=== PATIENT | male | born 1965 | race Caucasian/White ===

== ENCOUNTER → 2016-10-20 | Outpatient (CLI) | payer OTHER ==
[~2016-10-20] MED LIST: ADVIN25/60 INH; ALBUAER2 INH; AMLO-110 PO; ASPEC81 PO; ASPI81TA28 PO; AZEL30SP NAE; CARV25TA2 PO; CITA20TA4 PO; CLOP1TAB15 PO; CYM/30 PO; FLV1 PO; FRS/40 PO; GABA-112 PO; GLC/500 PO; INSDGI SC; INSDGI SQ; LISI40TA PO; MOME100A INH; MTH25 PO; NVLGI SC; OMEP40CA PO; POTA10CA28 PO; ROSU40TA PO; SPRIN/30 INH; TRAM-10 PO; TRIA37.5 PO; ZOLP5TAB PO
[2016-10-20 09:58] LABS: BASO % 0.9 %; BASO ABS # 0.05 K/uL (0-0.2); COMPLETE YES; EOS % 5.5 %; HEMATOCRIT 42.7 % (42-52); IG% 0.2 %; LYMPH % 23.6 %; LYMPH ABS # 1.32 K/uL (1.2-3.4); MEAN CELL VOLUME 86.1 fL (80-100); MEAN CORPUSCULAR HGB CONC 33.7 g/dl (32-36); MEAN PLATELET VOLUME 11.7 fL (7.4-10.4); MONO % 5.9 %; NEUT % 63.9 %; PLATELET COUNT 129 K/uL (130-400); RED BLOOD COUNT 4.96 M/uL (4.7-6.1)
[2016-10-20 10:27] LABS: ESTIMATED AVERAGE GLUCOSE 214 mg/dl; HA1C FLAG Normal (Normal)
[2016-10-20 10:34] LABS: ALT/SGPT 28 U/L (12-78); AST/SGOT 12 U/L (15-37); BLOOD UREA NITROGEN 9 mg/dl (7-18); BUN/CREATININE RATIO 13.9 (10-20); CALCIUM 8.9 mg/dl (8.5-10.1); CARBON DIOXIDE 29 mmol/L (21-32); CHLORIDE 106 mmol/L (98-107); CHOLESTEROL 123 mg/dl (0-200); CREATININE 0.64 mg/dl (0.60-1.40); GLUCOSE 106 mg/dl (70-99); POTASSIUM 4.1 mmol/L (3.5-5.1); SODIUM 142 mmol/L (136-145)
[2016-10-20 10:45] LABS: ALB/GLOB RATIO 1.3 (0.9-2); ALKALINE PHOSPHATASE 61 U/L (45-117); CHOLESTEROL/HDL RATIO 2.9; HDL CHOLESTEROL 42 mg/dl; LDL CHOLESTEROL CALCULATED 57 mg/dl; THYROID STIMULATING HORMONE 0.564 uIu/ml (0.300-4.500); TRIGLYCERIDES 119 mg/dl (0-150); VERY LOW DENSITY LIPOPROT CALC 24 mg/dl
== END | disposition home or self-care (01) ==
LOC: C.LAB1850 08:58
PROVIDERS: ATTEND Internal Medicine
DX: I42.9 Cardiomyopathy, unspecified (principal); E78.5 Hyperlipidemia, unspecified; E11.8 Type 2 diabetes mellitus with unspecified complications; G47.00 Insomnia, unspecified

== ENCOUNTER → 2017-01-25 | Outpatient (CLI) | payer OTHER ==
[~2017-01-25] MED LIST changes: +CEFU1TAB36 PO; +KETO2SHA TOP; +NOVOLOG INJ; +OXYC-57 PO; +PRLSR20 PO; +VNTHFA/IN INH
[2017-01-25 10:43] LABS: BASO % 0.5 %; BASO ABS # 0.03 K/uL (0-0.2); COMPLETE YES; EOS % 4.1 %; IG% 0.3 %; LYMPH % 23.2 %; LYMPH ABS # 1.37 K/uL (1.2-3.4); MEAN CELL VOLUME 92.3 fL (80-100); MEAN CORPUSCULAR HEMOGLOBIN 30.1 pg (25-34); MEAN CORPUSCULAR HGB CONC 32.6 g/dl (32-36); MEAN PLATELET VOLUME 11.5 fL (7.4-10.4); MONO % 6.8 %; NEUT % 65.1 %; PLATELET COUNT 130 K/uL (130-400); RED BLOOD COUNT 4.55 M/uL (4.7-6.1); WHITE BLOOD COUNT 5.91 K/uL (4.8-10.8)
[2017-01-25 10:55] LABS: ESTIMATED AVERAGE GLUCOSE 197 mg/dl; HA1C FLAG Normal (Normal)
[2017-01-25 11:30] LABS: AST/SGOT 35 U/L (15-37); BLOOD UREA NITROGEN 15 mg/dl (7-18); CALCIUM 8.9 mg/dl (8.5-10.1); CARBON DIOXIDE 30 mmol/L (21-32); CHLORIDE 104 mmol/L (98-107); CREATININE 0.66 mg/dl (0.60-1.40); GLUCOSE 245 mg/dl (70-99); POTASSIUM 4.4 mmol/L (3.5-5.1); SODIUM 139 mmol/L (136-145)
[2017-01-25 11:32] LABS: ALB/GLOB RATIO 1.4 (0.9-2); ALKALINE PHOSPHATASE 65 U/L (45-117); ALT/SGPT 75 U/L (12-78)
== END | disposition home or self-care (01) ==
LOC: C.LAB1850 09:32
PROVIDERS: ATTEND Internal Medicine
DX: E11.319 Type 2 diabetes mellitus with unspecified diabetic retinopathy without macular edema (principal); I42.9 Cardiomyopathy, unspecified; I25.10 Atherosclerotic heart disease of native coronary artery without angina pectoris

== ENCOUNTER → 2017-02-12 | Outpatient (CLI) | payer OTHER ==
--- NOTE | 2017-02-12 08:59 | DIAGNOSTIC IMAGING REPORT ---
FUSION CT SINUSES W/O CLINICAL HISTORY: Chronic sinusitis. Nasal septal deviation. COMPARISON STUDY: No previous studies for comparison. FINDINGS: No orbital lesions are visualized. There is no evidence of hydrocephalus. There is partial opacification left mastoid. There is fluid present within the left middle ear cavity. There is minimal mucosal thickening within the sphenoid. There is mild polypoid mucosal thickening within the maxillary sinuses. There is minor mucosal thickening within the ethmoid sinuses. There is mild mucosal disease in the frontal sinuses. There is a left-sided nasal septal spur. The ostiomeatal units are patent. There is a left-sided Jaciel cell. The frontoethmoidal recesses are patent. There is no erosion of the scutum. IMPRESSION: 1. Pansinus mucosal thickening 2. Mild nasal septal deviation to the left 3. The ostiomeatal units and frontoethmoidal recesses are patent 4. Left-sided mastoiditis. Fluid/soft tissue within the left middle ear cavity. No evidence of scutum erosion. Electronically signed by: Srinath Cedeno M.D. 02/12/2017 8:57 AM Dictated Date/Time: 02/12/2017 8:53 AM
== END | disposition home or self-care (01) ==
LOC: C.CTS 08:31
PROVIDERS: ATTEND Physician Assistant
DX: J32.9 Chronic sinusitis, unspecified (principal); H70.92 Unspecified mastoiditis, left ear

== ENCOUNTER 2017-05-14 20:01 | Inpatient (IN) | payer OTHER ==
[~2017-05-14] VITALS: Ht 180.3 cm; Wt 129.8 kg
[~2017-05-14 20:01] MED LIST changes: -ASPI81TA28 PO; -CYM/30 PO; -FLV1 PO; -INSDGI SQ; -MTH25 PO; -TRAM-10 PO
[2017-05-14] MEDS ORDERED: ONDANSETRON INJ 2 MG/ML 2 ML VIAL IV STA (20:20)
[2017-05-14] MEDS ORDERED: SODIUM CHLORIDE 0.9% 1000ML 500 ML IV STA (20:20)
[2017-05-14] MEDS ORDERED: SODIUM CHLORIDE 0.9% 1000ML 1,000 ML IV STA (20:20)
[2017-05-14] MEDS ORDERED: OPTIRAY 320 IV PRN (20:30)
[2017-05-14 20:57] LABS: BASO % 0.4 %; BASO ABS # 0.03 K/uL (0-0.2); COMPLETE YES; EOS % 5.2 %; HEMATOCRIT 43.4 % (42-52); IG% 0.3 %; LYMPH % 22.4 %; MEAN CORPUSCULAR HEMOGLOBIN 30.9 pg (25-34); MEAN CORPUSCULAR HGB CONC 34.3 g/dl (32-36); MEAN PLATELET VOLUME 10.4 fL (7.4-10.4); NEUT % 64.7 %; PLATELET COUNT 150 K/uL (130-400); RED BLOOD COUNT 4.82 M/uL (4.7-6.1); WHITE BLOOD COUNT 7.13 K/uL (4.8-10.8)
[2017-05-14 21:07] LABS: INR 0.9 (0.9-1.1); PARTIAL THROMBOPLASTIN RATIO 0.9; PROTHROMBIN TIME (PATIENT) 9.7 SECONDS (9.0-12.0)
--- NOTE | 2017-05-14 21:07 | EMERGENCY ROOM VISIT NOTE ---
History Report prepared by Alex: Jovanna Sherwood Under the Supervision of: Dr. Oscar Saeed M.D. First contact with patient: 20:12 Chief Complaint: ABNORMAL LABS Stated Complaint: PANCREATITIS, ABD PAIN, REFERRED History of Present Illness The patient is a 52 year old male who presents to the Emergency Room with complaints of persistent abdominal pain for the past 3 weeks. The patient was at his PCP office today for a diabetes check up. He reported that he had been having epigastric abdominal pain for 3 weeks with nausea. Lab work showed that his lipase was 1290 so he was sent to the ED. He has a history of pancreatitis once before in 2012. No reason was found for his pancreatitis. He states that his current abdominal pain does not feel like his previous pancreatitis. He rates his discomfort as a 5/10 in severity. After eating or drinking, his pain worsens to 8/10. He has tried taking Pepto Bismol to no significant relief. He notes that he has lost 10 lbs in the past month. The pain does go through to his back. He saw a chiropractor today to no significant relief. He denies any vomiting, fever, diarrhea, or lower abdominal pain. He denies any alcohol use. He still has his gallbladder. His sugars have been high for the past 3 weeks. Source of History: patient Onset: 3 weeks Position: abdomen (epigastric) Symptom Intensity: 5/10, 8/10 after eating Quality: other (pain) Timing: other (persistent) Modifying Factors (Worsening): eating Associated Symptoms: + nausea, + back pain, No fevers, No vomiting, No diarrhea Note: Pt reports lower abdominal pain, weight loss. Review of Systems See HPI for pertinent positives & negatives. A total of 10 systems reviewed and were otherwise negative. Past Medical & Surgical Medical Problems: (1) Anxiety disorder (2) Asthma (3) Benign hypertension (4) CAD (coronary artery disease) (5) CHF (congestive heart failure) (6) Closed right ankle fracture (7) COPD (chronic obstructive pulmonary disease) (8) Coronary artery disease (9) Depressive disorder (10) Diabetes (11) Dyslipidemia (12) GERD (gastroesophageal reflux disease) (13) HTN (hypertension) (14) Hyperlipidemia (15) Myocardial infarction (16) Pancreatitis (17) Sleep apnea Surgical Problems: (1) History of arthroscopy of left shoulder (2) History of permanent cardiac pacemaker placement (3) Presence of biventricular automatic implantable cardioverter defibrillator (4) Stented coronary artery Family History Cancer Diabetes mellitus FH: heart disease Hypertension Social History Smoking Status: Current Every Day Smoker Marital Status: Occupation Status: disabled Current/Historical Medications Scheduled Amlodipine (Norvasc), 5 MG PO DAILY Aspirin (Aspirin Ec), 81 MG PO DAILY Azelastine Hcl-Fluticasone Pro (Dymista), 1 SPRY CASSI BID Carvedilol (Coreg), 50 MG PO BID Citalopram Hydrobromide (Citalopram Hydrobromide), 20 MG PO DAILY Clopidogrel (Plavix), 75 MG PO DAILY Fluticasone Prop/Salmeterol (Advair Diskus 250/50 60 Dose), 1 PUFF INH BID Furosemide (Lasix), 40 MG PO DAILY Gabapentin (Neurontin), 200 MG PO TID Insulin Aspart (Novolog), 0 SC AC Insulin Glargine (Lantus), 100 UNITS SQ QAM Insulin Glargine (Lantus), 65 UNITS SQ QPM Lisinopril (Zestril), 40 MG PO DAILY Metformin Hcl (Glucophage), 1,000 MG PO HS Omeprazole (Prilosec), 40 MG PO DAILY Potassium Chloride (Micro-K Ext Rel), 20 MEQ PO DAILY Rosuvastatin Calcium (Crestor), 40 MG PO DAILY Triamterene/Hctz (Dyazide 37.5MG/25MG), 1 CAP PO Q2D Scheduled PRN Albuterol (Ventolin Hfa), 1-2 PUFFS INH Q4H PRN for SOB/Wheezing Mometasone Furoate-Formoterol (Dulera 100/5 Mcg), 2 PUFFS INH BID PRN for SOB/ Wheezing Tiotropium [place] (Spiriva Handihaler), 1 CAP INH DAILY PRN for SOB/Wheezing Zolpidem Tartrate (Ambien), 5-10 MG PO HS PRN for Anxiety/Insomnia Allergies Coded Allergies: Lactose (Verified Allergy, Mild, 06/23/15) Felodipine (Verified Allergy, Unknown, UNKNOWN, 06/23/15) Physical Exam Vital Signs Date Time Temp Pulse Resp B/P (MAP) Pulse Ox O2 Delivery O2 Flow Rate FiO2 05/14/17 20:10 36.7 85 18 132/84 96 Room Air Physical Exam GENERAL: Patient is in no acute distress. HEENT: No acute trauma, normocephalic atraumatic, mucous membranes moist, no nasal congestion, no scleral icterus. NECK: No stridor, no adenopathy, no meningismus, trachea is midline. LUNGS: Clear to auscultation bilaterally, no wheeze, no rhonchi, breath sounds equal. HEART: Without murmurs gallops or rubs, regular rate and rhythm. ABDOMEN: Soft, tender in the epigastrium, bowel sounds positive, no hernias, no peritonitis. EXTREMITIES: No cyanosis or edema, full range of motion of all the joints without pain or difficulty, no signs for acute trauma. NEUROLOGIC: Oriented x 3, no acute motor or sensory deficits, no focal weakness. SKIN: No rash, no jaundice, no diaphoresis. Medical Decision & Procedures ER Provider Diagnostic Interpretation: CT of abdomen/pelvis is pending. Laboratory Results 05/14/17 20:40 Red Blood Count 4.82, Mean Corpuscular Volume 90.0, Mean Corpuscular Hemoglobin 30.9, Mean Corpuscular Hemoglobin Concent 34.3, Mean Platelet Volume 10.4, Neutrophils (%) (Auto) 64.7, Lymphocytes (%) (Auto) 22.4, Monocytes (%) (Auto) 7.0, Eosinophils (%) (Auto) 5.2, Basophils (%) (Auto) 0.4, Neutrophils # (Auto) 4.61, Lymphocytes # (Auto) 1.60, Monocytes # (Auto) 0.50, Eosinophils # (Auto) 0.37, Basophils # (Auto) 0.03 05/14/17 20:40 Test 05/14/17 20:40 White Blood Count 7.13 K/uL (4.8-10.8) Red Blood Count 4.82 M/uL (4.7-6.1) Hemoglobin 14.9 g/dL (14.0-18.0) Hematocrit 43.4 % (42-52) Mean Corpuscular Volume 90.0 fL (80-100) Mean Corpuscular Hemoglobin 30.9 pg (25-34) Mean Corpuscular Hemoglobin Concent 34.3 g/dl (32-36) Platelet Count 150 K/uL (130-400) Mean Platelet Volume 10.4 fL (7.4-10.4) Neutrophils (%) (Auto) 64.7 % Lymphocytes (%) (Auto) 22.4 % Monocytes (%) (Auto) 7.0 % Eosinophils (%) (Auto) 5.2 % Basophils (%) (Auto) 0.4 % Neutrophils # (Auto) 4.61 K/uL (1.4-6.5) Lymphocytes # (Auto) 1.60 K/uL (1.2-3.4) Monocytes # (Auto) 0.50 K/uL (0.11-0.59) Eosinophils # (Auto) 0.37 K/uL (0-0.5) Basophils # (Auto) 0.03 K/uL (0-0.2) RDW Standard Deviation 45.7 fL (36.4-46.3) RDW Coefficient of Variation 13.9 % (11.5-14.5) Immature Granulocyte % (Auto) 0.3 % Immature Granulocyte # (Auto) 0.02 K/uL (0.00-0.02) Prothrombin Time 9.7 SECONDS (9.0-12.0) Prothromb Time International Ratio 0.9 (0.9-1.1) Activated Partial Thromboplast Time 24.6 SECONDS (21.0-31.0) Partial Thromboplastin Ratio 0.9 Anion Gap 8.0 mmol/L (3-11) Est Creatinine Clear Calc Drug Dose 139.2 ml/min Estimated GFR () 115.9 Estimated GFR (Non- 100.0 BUN/Creatinine Ratio 12.3 (10-20) Calcium Level 9.4 mg/dl (8.5-10.1) Total Bilirubin 0.4 mg/dl (0.2-1) Aspartate Amino Transf (AST/SGOT) 10 U/L (15-37) Alanine Aminotransferase (ALT/SGPT) 28 U/L (12-78) Alkaline Phosphatase 63 U/L (45-117) Total Protein 7.4 gm/dl (6.4-8.2) Albumin 4.0 gm/dl (3.4-5.0) Globulin 3.4 gm/dl (2.5-4.0) Albumin/Globulin Ratio 1.2 (0.9-2) Amylase Level 115 U/L (25-115) Lipase 2490 U/L (73-393) Beta-Hydroxybutyric Acid 1.40 mg/dL (0.2-2.81) Laboratory results reviewed by me. Medications Administered Medications (Trade) Dose Ordered Sig/Stephan Route Start Time Stop Time Status Last Admin Dose Admin Sodium Chloride 500 ml @ 999 mls/hr Q31M STAT IV 05/14/17 20:20 05/14/17 20:50 DC 05/14/17 20:42 999 MLS/HR Ondansetron HCl (Zofran Inj) 4 mg NOW STAT IV 05/14/17 20:20 05/14/17 20:22 DC 05/14/17 20:42 4 MG Sodium Chloride 1,000 ml @ 200 mls/hr Q5H STAT IV 05/14/17 20:20 05/15/17 01:19 05/14/17 20:42 200 MLS/HR ECG Indication: abdominal pain Rate (beats per minute): 83 Rhythm: normal sinus Findings: no acute ischemic change, no ectopy, other (old anterior lateral infarct) ED Course 2016: The patient was evaluated in room C11B. A complete history and physical exam was performed. 2020: NSS 1000 ml @ 200 mls/hr IV, Zofran Inj 4 mg IV, NSS 500 ml @ 999 mls/hr IV. 2128: Insulin Human Regular 10 units IV. 2132: I discussed the patient's case with Dr. Gonzales, [facility] [place] hospitalist service. The patient will be evaluated for further management. 2134: Upon reexamination the patient is resting comfortably. I discussed results and treatment plan with the patient. He verbalizes agreement and understanding. The patient will be evaluated for further management. Medical Decision Differential diagnoses considered include pancreatitis, biliary colic, acute cholecystis, dehydration, electrolyte imbalance, anemia, infection. There is no leukocytosis or concerning anemia. No kidney failure. Sugar is elevated at 400. No evidence for hepatitis. Pancreatitis was noted with a lipase of around 2400. EKG shows a sinus rhythm, no acute ischemia. There was no coagulopathy. Abdominal and pelvis CT has been ordered to help evaluate the pancreatitis, this result is pending. The patient presents with 3 weeks of epigastric abdominal pain. He carries a history of pancreatitis. He received IV saline, IV Zofran. He was given IV insulin for the elevated blood sugar. Patient is resting comfortably. He does require admission/observation. I did speak with case management, I spoke to the on-call hospitalist. Consults Time Called: 2129 Consulting Physician: Dr. Gonzales [facility] [place] hospitalist service Returned Call: [phone] Discussed the patient's case. The patient will be evaluated for further management. Impression Primary Impression: Pancreatitis Additional Impression: Hyperglycemia Scribe Attestation The scribe's documentation has been prepared under my direction and personally reviewed by me in its entirety. I confirm that the note above accurately reflects all work, treatment, procedures, and medical decision making performed by me. Departure Information Dispostion Being Evaluated By Hospitalist Referrals ,Rusty Borges M.D. (PCP) Patient Instructions [facility] Problem Qualifiers
[2017-05-14 21:26] LABS: ALB/GLOB RATIO 1.2 (0.9-2); BUN/CREATININE RATIO 12.3 (10-20); CALCIUM 9.4 mg/dl (8.5-10.1); CREATININE 0.84 mg/dl (0.60-1.40); POTASSIUM 4.2 mmol/L (3.5-5.1)
[2017-05-14] MEDS ORDERED: INSDGI SQ ×2 (21:27→21:28)
[2017-05-14] MEDS ORDERED: ASPI81TA28 PO (21:28)
[2017-05-14] MEDS ORDERED: NovoLIN-R INSULIN PER UNIT CHARGE IV STA (21:29)
[2017-05-14 21:39] LABS: BETA-HYDROXYBUTYRATE 1.4 mg/dL (0.2-2.81)
--- NOTE | 2017-05-14 21:48 | EMERGENCY ROOM VISIT NOTE ---
ED Visit Note First contact with patient: 20:12 During the patient's ER stay as he was waiting for his abdominal and pelvis CT scan, he began having some increased abdominal pain. He was ordered for morphine 4 mg IV as needed.
[2017-05-14] MEDS ORDERED: MoRPHine SULFATE 4 MG/ML 1 ML CARP\\VIAL IV PRN (22:00)
[2017-05-14] MEDS ORDERED: ALUMINUM/MAGNESIUM/SIMETH (MAALOX MAX) 30 ML UDC PO PRN (22:30)
[2017-05-14] MEDS ORDERED: MAGNESIUM HYDROXIDE SUSP 30 ML UDC PO PRN (22:30)
[2017-05-14] MEDS ORDERED: ONDANSETRON INJ 2 MG/ML 2 ML VIAL IV PRN (22:30)
[2017-05-14] MEDS ORDERED: ALBUTEROL HFA 8 GM INHALER INH PRN (22:30)
[2017-05-14] MEDS ORDERED: ZOLPIDEM TARTRATE 5 MG TAB PO PRN (22:30)
[2017-05-14] MEDS ORDERED: ACETAMINOPHEN 325 MG TAB PO PRN (22:30)
[2017-05-14] MEDS ORDERED: TIOTROPIUM BROMIDE 5 PUFF/90 MCG INH INH PRN (22:30)
--- NOTE | 2017-05-14 22:41 | History and Physical ---
History & Physical Date & Time of Service: May 14, 2017 at 22:26 Chief Complaint: Pancreatitis, Abd Pain, Referred Primary Care Physician: Rusty Gresham M.D. History of Present Illness Source: patient 52 y/o M Hx DM, HTN, HPL, CAD - multiple MIs, pacer/defib, Pancreatitis x 3. Pt was at his PCPs office for a routine visit. He had complained of epigastric pain for 2-3 weeks and his MD checked a lipase as a result. This returned as abnormally high and he was therefore sent to the ER for admission. He denies any CP, SOB, N/V/D, fevers or dysuria. Past Medical/Surgical History Medical Problems: (1) Anxiety disorder Status: Chronic (2) Asthma Status: Chronic (3) Benign hypertension Status: Chronic (4) CAD (coronary artery disease) Status: Chronic (5) CHF (congestive heart failure) Status: Resolved (6) Closed right ankle fracture Status: Resolved (7) COPD (chronic obstructive pulmonary disease) Status: Chronic (8) Coronary artery disease Status: Chronic (9) Depressive disorder Status: Chronic (10) Diabetes Status: Chronic (11) Dyslipidemia Status: Chronic (12) GERD (gastroesophageal reflux disease) Status: Chronic (13) HTN (hypertension) Status: Chronic (14) Hyperlipidemia Status: Chronic (15) Myocardial infarction Permanent Comment: x 5 Status: Chronic (16) Pancreatitis Status: Resolved (17) Sleep apnea Status: Chronic Surgical Problems: (1) History of arthroscopy of left shoulder Status: Resolved (2) History of permanent cardiac pacemaker placement Status: Resolved (3) Presence of biventricular automatic implantable cardioverter defibrillator Status: Resolved (4) Stented coronary artery Status: Resolved Family History Cancer Diabetes mellitus FH: heart disease Hypertension Social History Smoking Status: Current Every Day Smoker Marital Status: Occupational Status: disabled Immunizations History of Influenza Vaccine: N/A Influenza Vaccine Date: Jul 08, 2012 History of Tetanus Vaccine?: UTD History of Pneumococcal: Yes History of Hepatitis B Vaccine: Unknown Multi-Drug Resistant Organisms History of MDRO: Yes Type of MDRO: MRSA Allergies Coded Allergies: Lactose (Verified Allergy, Mild, 06/23/15) Felodipine (Verified Allergy, Unknown, UNKNOWN, 06/23/15) Home Medications Scheduled Amlodipine (Norvasc), 5 MG PO DAILY Aspirin (Aspirin Ec), 81 MG PO DAILY Carvedilol (Coreg), 50 MG PO BID Citalopram Hydrobromide (Citalopram Hydrobromide), 20 MG PO DAILY Clopidogrel (Plavix), 75 MG PO DAILY Fluticasone Prop/Salmeterol (Advair Diskus 250/50 60 Dose), 1 PUFF INH BID Furosemide (Lasix), 40 MG PO DAILY Gabapentin (Neurontin), 200 MG PO TID Insulin Aspart (Novolog), 0 SC AC Insulin Glargine (Lantus), 100 UNITS SQ QAM Insulin Glargine (Lantus), 65 UNITS SQ QPM Lisinopril (Zestril), 40 MG PO DAILY Metformin Hcl (Glucophage), 1,000 MG PO HS Omeprazole (Prilosec), 40 MG PO DAILY Potassium Chloride (Micro-K Ext Rel), 20 MEQ PO DAILY Rosuvastatin Calcium (Crestor), 40 MG PO DAILY Triamterene/Hctz (Dyazide 37.5MG/25MG), 1 CAP PO Q2D Scheduled PRN Albuterol (Ventolin Hfa), 1-2 PUFFS INH Q4H PRN for SOB/Wheezing Mometasone Furoate-Formoterol (Dulera 100/5 Mcg), 2 PUFFS INH BID PRN for SOB/ Wheezing Tiotropium [place] (Spiriva Handihaler), 1 CAP INH DAILY PRN for SOB/Wheezing Zolpidem Tartrate (Ambien), 5-10 MG PO HS PRN for Anxiety/Insomnia Review of Systems Constitutional: No fever, No chills, No sweats Eyes: No worsening of vision ENT: No hearing loss Respiratory: No cough, No sputum, No wheezing Cardiovascular: No chest pain, No orthopnea, No PND Abdomen: + pain, No nausea, No vomiting, No diarrhea, No constipation Musculoskeletal: No joint pain, No muscle pain Genitourinary - Male: No hematuria, No dysuria, No urinary frequency, No urinary urgency Neurologic: No memory loss, No paralysis, No weakness Psychiatric: No depression symptoms Endocrine: No fatigue Hematologic / Lymphatic: No abnormal bleeding/bruising Integumentary: No rash Allergic / Immunologic: No environmental allergies Physical Exam Vital Signs Date Time Temp Pulse Resp B/P (MAP) Pulse Ox O2 Delivery O2 Flow Rate FiO2 05/14/17 22:03 82 18 136/81 97 Room Air 05/14/17 20:10 36.7 85 18 132/84 96 Room Air General Appearance: WD/WN, no apparent distress Head: normocephalic Eyes: normal inspection, PERRL, EOMI ENT: normal ENT inspection, pharynx normal Neck: supple, + pertinent finding (Exam limited by habitus) Respiratory/Chest: chest non-tender, lungs clear, normal breath sounds, no respiratory distress, no accessory muscle use Cardiovascular: regular rate, rhythm, no edema, no gallop Abdomen/GI: normal bowel sounds, non tender, soft Back: normal inspection Extremities/Musculoskelatal: normal inspection 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, no motor/sensory deficits, alert, normal mood/affect, normal reflexes, oriented x 3 Skin: normal color, warm/dry, no rash Diagnostics Laboratory Results Results Past 24 Hours Test 05/14/17 20:40 Range/Units White Blood Count 7.13 4.8-10.8 K/uL Red Blood Count 4.82 4.7-6.1 M/uL Hemoglobin 14.9 14.0-18.0 g/dL Hematocrit 43.4 42-52 % Mean Corpuscular Volume 90.0 80-100 fL Mean Corpuscular Hemoglobin 30.9 25-34 pg Mean Corpuscular Hemoglobin Concent 34.3 32-36 g/dl Platelet Count 150 130-400 K/uL Mean Platelet Volume 10.4 7.4-10.4 fL Neutrophils (%) (Auto) 64.7 % Lymphocytes (%) (Auto) 22.4 % Monocytes (%) (Auto) 7.0 % Eosinophils (%) (Auto) 5.2 % Basophils (%) (Auto) 0.4 % Neutrophils # (Auto) 4.61 1.4-6.5 K/uL Lymphocytes # (Auto) 1.60 1.2-3.4 K/uL Monocytes # (Auto) 0.50 0.11-0.59 K/uL Eosinophils # (Auto) 0.37 0-0.5 K/uL Basophils # (Auto) 0.03 0-0.2 K/uL RDW Standard Deviation 45.7 36.4-46.3 fL RDW Coefficient of Variation 13.9 11.5-14.5 % Immature Granulocyte % (Auto) 0.3 % Immature Granulocyte # (Auto) 0.02 0.00-0.02 K/uL Prothrombin Time 9.7 9.0-12.0 SECONDS Prothromb Time International Ratio 0.9 0.9-1.1 Activated Partial Thromboplast Time 24.6 21.0-31.0 SECONDS Partial Thromboplastin Ratio 0.9 Sodium Level 135 136-145 mmol/L Potassium Level 4.2 3.5-5.1 mmol/L Chloride Level 101 98-107 mmol/L Carbon Dioxide Level 26 21-32 mmol/L Anion Gap 8.0 3-11 mmol/L Blood Urea Nitrogen 10 7-18 mg/dl Creatinine 0.84 0.60-1.40 mg/dl Est Creatinine Clear Calc Drug Dose 139.2 ml/min Estimated GFR () 115.9 Estimated GFR (Non- 100.0 BUN/Creatinine Ratio 12.3 10-20 Random Glucose 416 70-99 mg/dl Calcium Level 9.4 8.5-10.1 mg/dl Total Bilirubin 0.4 0.2-1 mg/dl Aspartate Amino Transf (AST/SGOT) 10 15-37 U/L Alanine Aminotransferase (ALT/SGPT) 28 12-78 U/L Alkaline Phosphatase 63 45-117 U/L Total Protein 7.4 6.4-8.2 gm/dl Albumin 4.0 3.4-5.0 gm/dl Globulin 3.4 2.5-4.0 gm/dl Albumin/Globulin Ratio 1.2 0.9-2 Triglycerides Level 261 0-150 mg/dl Amylase Level 115 25-115 U/L Lipase 2490 73-393 U/L Beta-Hydroxybutyric Acid 1.40 0.2-2.81 mg/dL EKG NSR - LAFB - ant and lat Q wvs Impression Assessment and Plan 52 y/o M Hx DM, HTN, HPL, CAD - multiple MIs, pacer/defib, Pancreatitis x 3. Pt was at his PCPs office for a routine visit. He had complained of epigastric pain for 2-3 weeks and his MD checked a lipase as a result. This returned as abnormally high and he was therefore sent to the ER for admission. He denies any CP, SOB, N/V/D, fevers or dysuria. 1) Pancreatitis - pt will be kept NPO - IVF, pain control as needed. The pt takes several diuretics. He denies a history of pulmonary edema - there is CHF in the records without echo on record. We will hold his diuretics pending AM evaluation and will need to monitor his volume status. Lasix can be provided PRN. 2) DM - hyperglycemia - will be placed on a SS with prescribed Lantus dose. 3) CAD - no evidence of ACS at present - cont ASA, Plavix, statin, B amilcar - NTG PRN 4) HPL - cont statin 5) HTN - Cont Carvedilol, norvasc - diuretics held 6) Smoker - cessation addressed 7) Morbid obesity - may benefit from nutritional counseling prior to DC. Level of Care Med/Surg Resuscitation Status FULL RESUSCITATION VTE Prophylaxis VTE Risk Assessment Done? Y/N: Yes Risk Level: Moderate Given or contraindicated: Unfractionated heparin SQ
[2017-05-14] MEDS ORDERED: POLYETHYLENE (MIRALAX) 17 GM PACK PO PRN (22:45)
[2017-05-14] MEDS ORDERED: GLUCOSE 10 TABS/TUBE PO PRN (23:00)
[2017-05-14] MEDS ORDERED: GLUCAGON FOR INJ 1 MG VIAL SQ PRN (23:00)
[2017-05-14] MEDS ORDERED: DEXTROSE 50% 50 ML SYR IV PRN (23:00)
[2017-05-14] MEDS ORDERED: GLUCOSE 40% GEL 15 GM TUBE PO PRN (23:00)
--- NOTE | 2017-05-14 23:04 | DIAGNOSTIC IMAGING REPORT ---
CT ABD/PELVIS IV AND ORAL CONT CLINICAL HISTORY: Abdominal pain. Elevated lipase. Pancreatitis. COMPARISON STUDY: 06/23/2015 TECHNIQUE: Following the IV administration of 119 mL of Optiray-320, CT scan of the abdomen and pelvis was performed from the lung bases to the proximal femurs. Images are reviewed in the axial, sagittal, and coronal planes. IV contrast was administered without complication. A dose lowering technique was utilized adhering to the principles of ALARA. CT DOSE: 1858.95 mGy.cm FINDINGS: Lower chest: There are bibasal atelectatic changes. There is progressive distal esophageal wall thickening. Liver: There is mild hepatic steatosis. No focal masses are visualized. Gallbladder: Unremarkable. Spleen: The spleen is borderline enlarged measuring 12.2 cm. Pancreas: Unremarkable. Adrenal glands: Unremarkable. Kidneys: There is symmetric renal cortical enhancement. The kidneys are normal in size without hydronephrosis. Bowel: There are no transition zones indicate bowel obstruction. The appendix appears normal. There is no acute diverticulitis. Peritoneum: There is no intraperitoneal free air or abdominal ascites. Vasculature: The abdominal aorta is normal in course and caliber. Adenopathy: None. Pelvic viscera: The bladder, and pelvic viscera are unremarkable. Skeletal structures: No destructive osseous lesions are seen. IMPRESSION: 1. No pancreatic abnormalities are identified 2. Mild hepatic steatosis 3. No evidence of bowel obstruction. No evidence of free air 4. Normal appendix. No evidence of acute diverticulitis. Electronically signed by: Srinath Cedeno M.D. 05/14/2017 11:03 PM Dictated Date/Time: 05/14/2017 10:58 PM
[2017-05-14] MEDS: SODIUM CHLORIDE 0.9% 1000ML 1,000 ML IV SCH (23:48)
[2017-05-15] VITALS (7 sets, daily range): BP systolic 78–164; BP diastolic 64–90; PULSE 67–85; TEMP 36.5–36.6; O2SAT 94–96; Ht 180.3 cm; Wt 129.8 kg
[2017-05-15] MEDS ORDERED: INSULIN GLARGINE SQ SCH ×2 (00:30→09:00)
[2017-05-15] MEDS ORDERED: NURSING VERBAL MED ORDER ONE ×3 (01:00→18:15)
[2017-05-15] MEDS: INSULIN ASPART 100 UNITS/ML 3 ML PEN SC SCH ×6 (01:08→21:00)
[2017-05-15 01:38] LABS: URINE APPEARANCE CLEAR (CLEAR); URINE BILIRUBIN NEG (NEG); URINE COLOR YELLOW; URINE EPITHELIAL CELL AUTO 0-5 /lpf (0-5); URINE NITRITE NEG (NEG); URINE SPECIFIC GRAVITY > 1.045 (1.000-1.030); UROBILINOGEN NEG (NEG); ZZUR CULT IF INDIC CLEAN CATCH NO
[2017-05-15 01:47] LABS: MANUAL MICROSCOPIC REQUIRED? NO; REVIEW REQ? NO
[2017-05-15] MEDS: NICOTINE 14 MG/24 HR TDSY TD SCH ×2 (02:10→08:16)
[2017-05-15] MEDS ORDERED: PNEUMOCOCCAL ADMINISTRATION CHARGE ONE (02:30)
[2017-05-15] MEDS ORDERED: PNEUMOCOCCAL POLYSACCHARIDES 25 MCG/0.5 ML VIAL/SYR IM. ONE (02:30)
[2017-05-15] MEDS: HEPARIN SOD 5000 UNIT/0.5 ML CARP SQ SCH ×3 (06:12→21:28)
[2017-05-15] MEDS ORDERED: INSULIN PROTOCOL GOAL RANGE ONE (06:15)
[2017-05-15] MEDS ORDERED: MODERATE STRESS LEVEL ONE (06:15)
[2017-05-15 06:33] LABS: HEMATOCRIT 44.4 % (42-52); MEAN CELL VOLUME 91.4 fL (80-100); MEAN CORPUSCULAR HEMOGLOBIN 29.6 pg (25-34); MEAN CORPUSCULAR HGB CONC 32.4 g/dl (32-36); MEAN PLATELET VOLUME 10.9 fL (7.4-10.4); PLATELET COUNT 151 K/uL (130-400); RED BLOOD COUNT 4.86 M/uL (4.7-6.1)
[2017-05-15 06:53] LABS: ESTIMATED AVERAGE GLUCOSE 203 mg/dl; HA1C FLAG Normal (Normal)
[2017-05-15 07:05] LABS: BUN/CREATININE RATIO 17.1 (10-20); CALCIUM 8.9 mg/dl (8.5-10.1); CREATININE 0.61 mg/dl (0.60-1.40); POTASSIUM 3.9 mmol/L (3.5-5.1)
[2017-05-15 07:08] LABS: ALB/GLOB RATIO 1.2 (0.9-2)
[2017-05-15] MEDS ORDERED: INSULIN IV INFUSION PROTOCOL SCH (07:08)
[2017-05-15] MEDS ORDERED: INSULIN HUMAN REGULAR IV BOLUS 3 UNIT in SYRINGE 0 ML IV SCH (08:00)
[2017-05-15] MEDS: FLUTICASONE/SALMETEROL 250/50 (ADVAIR) 14 PUFF/1 INHALER INH SCH ×2 (08:15→21:21)
[2017-05-15] MEDS: SODIUM CHLORIDE 0.9% 1000ML 1,000 ML IV SCH ×2 (08:15→16:24)
[2017-05-15] MEDS: INSULIN REGULAR 250 UNITS in SODIUM CHLORIDE 0.9% 250ML 250 ML IV SCH ×2 (08:24→16:35)
[2017-05-15] MEDS: CLOPIDOGREL BISULFATE 75 MG TAB PO SCH (08:26)
[2017-05-15] MEDS: GABAPENTIN 100 MG CAP PO SCH ×3 (08:26→21:23)
[2017-05-15] MEDS: AMLODIPINE BESYLATE 5 MG TAB PO SCH (08:26)
[2017-05-15] MEDS: CITALOPRAM 20 MG TAB PO SCH (08:26)
[2017-05-15] MEDS: LISINOPRIL 40 MG TAB PO SCH (08:27)
[2017-05-15] MEDS: PANTOprazole SOD 40 MG TAB PO SCH (08:27)
[2017-05-15] MEDS: ASPIRIN 81 MG ECTAB PO SCH (08:27)
[2017-05-15] MEDS: ROSUVASTATIN CALCIUM 20 MG TAB PO SCH (08:27)
[2017-05-15] MEDS: CARVEDILOL 25 MG TAB PO SCH ×2 (08:28→21:24)
[2017-05-15] MEDS ORDERED: NICOTINE 14 MG/24 HR TDSY TD SCH (09:00)
[2017-05-15] MEDS ORDERED: POTASSIUM CHLORIDE 10 MEQ TABCR PO SCH (09:00)
[2017-05-15] MEDS ORDERED: FUROSEMIDE 40 MG TAB PO SCH (09:00)
--- NOTE | 2017-05-15 12:07 | Medical Student: [facility] ---
Med Student Progress Note Date of Service May 15, 2017. Subjective Pt evaluation today including: conversation w/ patient, physical exam, chart review, lab review, review of studies Voiding: no voiding problems Patient was examined sitting in chair. He reports that he is feeling better and that his pain is decreasing. Rates pain 2/10 at the moment, down from 4/10 this morning and from 9/10 at its worst about 2 weeks ago. The pain is focal in the epigastric region and is exacerbated by deep palpation. He still does not feel ready to eat. He is familiar with pancreatitis as this is his third incidence in the past 6 years. He denies fever, chills, headache, dizziness, cp, sob, vomiting, diarrhea, numbness/tingling, calf pain. No other complaints at this time. Review of Systems Constitutional: No fever, No chills Eyes: No worsening of vision, No diplopia ENT: No sore throat, No trouble swallowing Respiratory: No cough, No shortness of breath Cardiac: No chest pain, No palpitations Abdomen: + pain, + nausea, No vomiting, No diarrhea Musculoskeletal: No muscle pain, No calf pain Male : No dysuria, No incontinence Neurologic: No weakness, No numbness/tingling Skin: No rash, No itch Objective Vital Signs Date Time Temp Pulse Resp B/P (MAP) Pulse Ox O2 Delivery O2 Flow Rate FiO2 05/15/17 08:00 Room Air 05/15/17 07:54 36.5 75 18 132/82 (99) 94 Room Air 05/15/17 01:39 36.5 85 18 164/90 (114) 95 Room Air 05/15/17 01:15 36.5 85 18 164/90 95 Room Air 05/14/17 23:12 74 18 135/86 98 05/14/17 22:03 82 18 136/81 97 Room Air 05/14/17 20:10 36.7 85 18 132/84 96 Room Air Physical Exam General Appearance: no apparent distress, + obese Eyes: bilateral eyes normal inspection, bilateral eyes PERRL, bilateral eyes EOMI ENT: normal ENT inspection, pharynx normal Neck: supple, no adenopathy, no carotid bruits Respiratory/Chest: lungs clear, normal breath sounds, no respiratory distress, no accessory muscle use Cardiovascular: regular rate, rhythm, no gallop, no murmur Abdomen: + abnormal bowel sounds (hypoactive), + tenderness (to palpation of epigastric region), + pertinent finding (negative [place]offman sign, negative [place] sign) Extremities: normal range of motion, non-tender, no calf tenderness Neurologic/Psychiatric: alert, oriented x 3 Skin: + pertinent finding (multiple skin tags bilaterally on back) Laboratory Results Last 24 Hours Test 05/14/17 20:40 05/14/17 23:30 05/15/17 01:00 05/15/17 05:51 White Blood Count 7.13 K/uL Red Blood Count 4.82 M/uL Hemoglobin 14.9 g/dL Hematocrit 43.4 % Mean Corpuscular Volume 90.0 fL Mean Corpuscular Hemoglobin 30.9 pg Mean Corpuscular Hemoglobin Concent 34.3 g/dl Platelet Count 150 K/uL Mean Platelet Volume 10.4 fL Neutrophils (%) (Auto) 64.7 % Lymphocytes (%) (Auto) 22.4 % Monocytes (%) (Auto) 7.0 % Eosinophils (%) (Auto) 5.2 % Basophils (%) (Auto) 0.4 % Neutrophils # (Auto) 4.61 K/uL Lymphocytes # (Auto) 1.60 K/uL Monocytes # (Auto) 0.50 K/uL Eosinophils # (Auto) 0.37 K/uL Basophils # (Auto) 0.03 K/uL RDW Standard Deviation 45.7 fL RDW Coefficient of Variation 13.9 % Immature Granulocyte % (Auto) 0.3 % Immature Granulocyte # (Auto) 0.02 K/uL Prothrombin Time 9.7 SECONDS Prothromb Time International Ratio 0.9 Activated Partial Thromboplast Time 24.6 SECONDS Partial Thromboplastin Ratio 0.9 Sodium Level 135 mmol/L Potassium Level 4.2 mmol/L Chloride Level 101 mmol/L Carbon Dioxide Level 26 mmol/L Anion Gap 8.0 mmol/L Blood Urea Nitrogen 10 mg/dl Creatinine 0.84 mg/dl Est Creatinine Clear Calc Drug Dose 139.2 ml/min Estimated GFR () 115.9 Estimated GFR (Non- 100.0 BUN/Creatinine Ratio 12.3 Random Glucose 416 mg/dl Calcium Level 9.4 mg/dl Total Bilirubin 0.4 mg/dl Aspartate Amino Transf (AST/SGOT) 10 U/L Alanine Aminotransferase (ALT/SGPT) 28 U/L Alkaline Phosphatase 63 U/L Total Protein 7.4 gm/dl Albumin 4.0 gm/dl Globulin 3.4 gm/dl Albumin/Globulin Ratio 1.2 Triglycerides Level 261 mg/dl Amylase Level 115 U/L Lipase 2490 U/L Beta-Hydroxybutyric Acid 1.40 mg/dL Bedside Glucose 357 mg/dl 294 mg/dl Urine Color YELLOW Urine Appearance CLEAR Urine pH 5.0 Urine Specific [place] > 1.045 Urine Protein NEG Urine Glucose (UA) 3+ Urine Ketones NEG Urine Occult Blood TRACE Urine Nitrite NEG Urine Bilirubin NEG Urine Urobilinogen NEG Urine Leukocyte Esterase NEG Urine WBC (Auto) 0 /hpf Urine RBC (Auto) 0-4 /hpf Urine Hyaline Casts (Auto) 0 /lpf Urine Epithelial Cells (Auto) 0-5 /lpf Urine Bacteria (Auto) NEG Test 05/15/17 06:10 05/15/17 07:35 05/15/17 09:22 05/15/17 10:44 White Blood Count 8.30 K/uL Red Blood Count 4.86 M/uL Hemoglobin 14.4 g/dL Hematocrit 44.4 % Mean Corpuscular Volume 91.4 fL Mean Corpuscular Hemoglobin 29.6 pg Mean Corpuscular Hemoglobin Concent 32.4 g/dl RDW Standard Deviation 46.3 fL RDW Coefficient of Variation 14.0 % Platelet Count 151 K/uL Mean Platelet Volume 10.9 fL Sodium Level 139 mmol/L Potassium Level 3.9 mmol/L Chloride Level 104 mmol/L Carbon Dioxide Level 29 mmol/L Anion Gap 6.0 mmol/L Blood Urea Nitrogen 10 mg/dl Creatinine 0.61 mg/dl Est Creatinine Clear Calc Drug Dose 192.3 ml/min Estimated GFR () 132.1 Estimated GFR (Non- 114.0 BUN/Creatinine Ratio 17.1 Random Glucose 263 mg/dl Estimated Average Glucose 203 mg/dl Hemoglobin A1c 8.7 % Calcium Level 8.9 mg/dl Total Bilirubin 0.4 mg/dl Aspartate Amino Transf (AST/SGOT) 7 U/L Alanine Aminotransferase (ALT/SGPT) 27 U/L Alkaline Phosphatase 59 U/L Total Protein 6.9 gm/dl Albumin 3.7 gm/dl Globulin 3.2 gm/dl Albumin/Globulin Ratio 1.2 Lipase 1872 U/L Bedside Glucose 269 mg/dl 238 mg/dl 213 mg/dl Assessment and Plan Assessment and Plan: This is a 52yo male with a history of T2DM uncontrolled on insulin, CAD x5 MIs s /p pacer/defib placement, and multiple episodes of pancreatitis who presented to the ED with epigastric pain and elevated lipase consistent with acute mild pancreatitis. He is hemodynamically stable. He does not drink alcohol, no recent trauma, no narcotic pain medication, no history of biliary tract disease or instrumentation, no history of hypercalcemia, no recent infection, triglycerides modestly elevated at 261. It is possible that his recurrent pancreatitis is secondary to pancreatic burnout from increasing insulin resistance. 1. Pancreatitis -3rd incidence in the past 6 years -lipase 2490 on admission, trending down 1872 on 05/15: will follow his symptoms and PO tolerance rather than lipase moving forward -continue to keep NPO with trial of clear liquids tomorrow AM -IV nss + KCl 20meq @ 175mls/hr -PRN morphine 2mg IV q6h prn pain -nutrition education 2. T2DM, uncontrolled on insulin -Accuchecks q1h until within goal BSG 140-180 x3, then q2h until within goal x3 , then q4h -insulin drip titrated to goal BSG 140-180 -gabapentin 200mg PO TID for neuropathy 3. CAD with hx of 5 MIs, pacer/defib, stent placement -ASA 81mg PO daily -clopidogrel 75mg PO daily -rosuvastatin 40mg PO daily -furosemide 40mg PO daily # HTN -amlodipine 5mg PO daily -carvedilol 50mg PO BID -lisinopril 40mg PO daily # VIVIAN -CPAP QHS # COPD -fluticasone/salmeterol (Advair) # GERD -pantoprazole 40mg PO daily # Depression -citalopram 20mg PO daily # Tobacco use -nicotine patch prn # Diet -NPO, plan for starting clear liquids 8/16 AM as tolerated # DVT prophylaxis -heparin 5000U q8h -patient may ambulate as tolerated # Discharge planning -Location: home -Date: TBD Continued [facility] stay due to: multiple IV medications needed Discharge planning: home Reviewed: Pt Seen/Exam by Me History See my note for details.
--- NOTE | 2017-05-15 14:17 | Progress Note ---
Subjective Date of Service: May 15, 2017. Subjective Pt evaluation today including: conversation w/ patient Pt states he is feeling improved today, but still with diffuse abd pain that is about 2/10 from his initial pain and worse in the epigastric region. Still with nausea but no emesis. States he has had pancreatitis before and this feels the same as those prior episodes. Also still having distention, but improved. Pt denies fever, SOB, chest pain, c/d, LE pain or swelling. Problem List Medical Problems: (1) Hyperglycemia Status: Acute Review of Systems All Other Systems: Reviewed and Negative Objective Vital Signs Date Time Temp Pulse Resp B/P (MAP) Pulse Ox O2 Delivery O2 Flow Rate FiO2 05/15/17 08:00 Room Air 05/15/17 07:54 36.5 75 18 132/82 (99) 94 Room Air 05/15/17 01:39 36.5 85 18 164/90 (114) 95 Room Air 05/15/17 01:15 36.5 85 18 164/90 95 Room Air 05/14/17 23:12 74 18 135/86 98 05/14/17 22:03 82 18 136/81 97 Room Air 05/14/17 20:10 36.7 85 18 132/84 96 Room Air Physical Exam General Appearance: no apparent distress, + obese Eyes: normal inspection, EOMI Respiratory/Chest: normal breath sounds, no respiratory distress Cardiovascular: regular rate, rhythm, no edema Abdomen: soft, + distended, + tenderness (mostly epigastric and with deep palpation) Extremities: non-tender, no pedal edema Neurologic/Psychiatric: alert, normal mood/affect, oriented x 3 Skin: normal color, warm/dry Laboratory Results Last 24 Hours Test 05/14/17 20:40 05/14/17 23:30 05/15/17 01:00 05/15/17 05:51 White Blood Count 7.13 K/uL Red Blood Count 4.82 M/uL Hemoglobin 14.9 g/dL Hematocrit 43.4 % Mean Corpuscular Volume 90.0 fL Mean Corpuscular Hemoglobin 30.9 pg Mean Corpuscular Hemoglobin Concent 34.3 g/dl Platelet Count 150 K/uL Mean Platelet Volume 10.4 fL Neutrophils (%) (Auto) 64.7 % Lymphocytes (%) (Auto) 22.4 % Monocytes (%) (Auto) 7.0 % Eosinophils (%) (Auto) 5.2 % Basophils (%) (Auto) 0.4 % Neutrophils # (Auto) 4.61 K/uL Lymphocytes # (Auto) 1.60 K/uL Monocytes # (Auto) 0.50 K/uL Eosinophils # (Auto) 0.37 K/uL Basophils # (Auto) 0.03 K/uL RDW Standard Deviation 45.7 fL RDW Coefficient of Variation 13.9 % Immature Granulocyte % (Auto) 0.3 % Immature Granulocyte # (Auto) 0.02 K/uL Prothrombin Time 9.7 SECONDS Prothromb Time International Ratio 0.9 Activated Partial Thromboplast Time 24.6 SECONDS Partial Thromboplastin Ratio 0.9 Sodium Level 135 mmol/L Potassium Level 4.2 mmol/L Chloride Level 101 mmol/L Carbon Dioxide Level 26 mmol/L Anion Gap 8.0 mmol/L Blood Urea Nitrogen 10 mg/dl Creatinine 0.84 mg/dl Est Creatinine Clear Calc Drug Dose 139.2 ml/min Estimated GFR () 115.9 Estimated GFR (Non- 100.0 BUN/Creatinine Ratio 12.3 Random Glucose 416 mg/dl Calcium Level 9.4 mg/dl Total Bilirubin 0.4 mg/dl Aspartate Amino Transf (AST/SGOT) 10 U/L Alanine Aminotransferase (ALT/SGPT) 28 U/L Alkaline Phosphatase 63 U/L Total Protein 7.4 gm/dl Albumin 4.0 gm/dl Globulin 3.4 gm/dl Albumin/Globulin Ratio 1.2 Triglycerides Level 261 mg/dl Amylase Level 115 U/L Lipase 2490 U/L Beta-Hydroxybutyric Acid 1.40 mg/dL Bedside Glucose 357 mg/dl 294 mg/dl Urine Color YELLOW Urine Appearance CLEAR Urine pH 5.0 Urine Specific [place] > 1.045 Urine Protein NEG Urine Glucose (UA) 3+ Urine Ketones NEG Urine Occult Blood TRACE Urine Nitrite NEG Urine Bilirubin NEG Urine Urobilinogen NEG Urine Leukocyte Esterase NEG Urine WBC (Auto) 0 /hpf Urine RBC (Auto) 0-4 /hpf Urine Hyaline Casts (Auto) 0 /lpf Urine Epithelial Cells (Auto) 0-5 /lpf Urine Bacteria (Auto) NEG Test 05/15/17 06:10 05/15/17 07:35 05/15/17 09:22 05/15/17 10:44 White Blood Count 8.30 K/uL Red Blood Count 4.86 M/uL Hemoglobin 14.4 g/dL Hematocrit 44.4 % Mean Corpuscular Volume 91.4 fL Mean Corpuscular Hemoglobin 29.6 pg Mean Corpuscular Hemoglobin Concent 32.4 g/dl RDW Standard Deviation 46.3 fL RDW Coefficient of Variation 14.0 % Platelet Count 151 K/uL Mean Platelet Volume 10.9 fL Sodium Level 139 mmol/L Potassium Level 3.9 mmol/L Chloride Level 104 mmol/L Carbon Dioxide Level 29 mmol/L Anion Gap 6.0 mmol/L Blood Urea Nitrogen 10 mg/dl Creatinine 0.61 mg/dl Est Creatinine Clear Calc Drug Dose 192.3 ml/min Estimated GFR () 132.1 Estimated GFR (Non- 114.0 BUN/Creatinine Ratio 17.1 Random Glucose 263 mg/dl Estimated Average Glucose 203 mg/dl Hemoglobin A1c 8.7 % Calcium Level 8.9 mg/dl Total Bilirubin 0.4 mg/dl Aspartate Amino Transf (AST/SGOT) 7 U/L Alanine Aminotransferase (ALT/SGPT) 27 U/L Alkaline Phosphatase 59 U/L Total Protein 6.9 gm/dl Albumin 3.7 gm/dl Globulin 3.2 gm/dl Albumin/Globulin Ratio 1.2 Lipase 1872 U/L Bedside Glucose 269 mg/dl 238 mg/dl 213 mg/dl Test 05/15/17 11:41 05/15/17 12:50 05/15/17 13:58 Bedside Glucose 202 mg/dl 181 mg/dl 161 mg/dl Assessment and Plan 52 y/o M who was admitted on 05/14 with epigastric pain and elevated lipase consistent with acute mild pancreatitis and hx of same. Pancreatitis: improving, likely related to uncontrolled DM status -lipase 2490 on admission and improving, no need to recheck lipase given clinically improving CT AP neg for pancreatitis, however pt with hx of same and sx are similar with elevated lipase -NPO with trial of clear liquids tomorrow AM if ongoing improvement IVF -PRN morphine 2mg IV q6h prn pain -nutrition education DM: uncontrolled on home insulin -insulin drip with SSI May need to adjust home use once taking PO -gabapentin 200mg PO TID for neuropathy CAD with hx of 5 MIs, pacer/defib, stent placement -ASA 81mg PO daily -clopidogrel 75mg PO daily -rosuvastatin 40mg PO daily -furosemide 40mg PO daily HTN -amlodipine 5mg PO daily -carvedilol 50mg PO BID -lisinopril 40mg PO daily VIVIAN -CPAP QHS COPD -fluticasone/salmeterol (Advair) GERD -pantoprazole 40mg PO daily Depression -citalopram 20mg PO daily Tobacco use -nicotine patch prn Other: Full code Heparin for DVT proph Diet as above
[2017-05-16 00:02] VITALS: BP 115/72; PULSE 64; TEMP 36.5; O2SAT 99
[2017-05-16 00:05] VITALS: O2SAT 97
[2017-05-16] MEDS: HEPARIN SOD 5000 UNIT/0.5 ML CARP SQ SCH ×2 (05:43→13:41)
[2017-05-16 06:59] VITALS: BP 126/79; PULSE 64; TEMP 36.8; O2SAT 93
--- NOTE | 2017-05-16 07:25 | Medical Student: [facility] ---
Med Student Progress Note Date of Service May 16, 2017. Subjective Pt evaluation today including: conversation w/ patient, physical exam, lab review Voiding: no voiding problems Patient examined as he was walking around room this morning. He is feeling much better with only "very slight" epigastric pain. He is very hungry and feels ready to eat. Denies fever, chills, cp, palpitations, sob, n/v/d, numbness/ tingling, calf pain. No other complaints at this time. Review of Systems Constitutional: No fever, No chills Eyes: No worsening of vision, No diplopia ENT: No sore throat, No trouble swallowing Respiratory: No cough, No shortness of breath Cardiac: No chest pain, No palpitations Abdomen: + pain (slight), No nausea, No vomiting, No diarrhea Musculoskeletal: No joint pain, No calf pain Male : No dysuria, No incontinence Neurologic: No weakness, No numbness/tingling Skin: No rash, No itch Objective Vital Signs Date Time Temp Pulse Resp B/P (MAP) Pulse Ox O2 Delivery O2 Flow Rate FiO2 05/16/17 06:59 36.8 64 20 126/79 (95) 93 BiPAP 05/16/17 00:05 97 Room Air 05/16/17 00:02 36.5 64 20 115/72 (86) 99 CPAP 05/15/17 21:30 67 120/78 (92) 05/15/17 21:23 67 78/ (26) 05/15/17 16:00 96 Room Air 05/15/17 15:42 36.6 68 18 95/64 (74) 96 Room Air 05/15/17 08:00 Room Air 05/15/17 07:54 36.5 75 18 132/82 (99) 94 Room Air Physical Exam General Appearance: no apparent distress, + obese Eyes: bilateral eyes normal inspection, bilateral eyes PERRL, bilateral eyes EOMI ENT: normal ENT inspection, hearing grossly normal, pharynx normal Neck: supple, no adenopathy Respiratory/Chest: lungs clear, normal breath sounds, no respiratory distress, no accessory muscle use Cardiovascular: regular rate, rhythm, no gallop, no murmur Abdomen: normal bowel sounds, non tender, + tenderness (to deep palpation) Extremities: normal range of motion, no calf tenderness, normal capillary refill Neurologic/Psychiatric: no motor/sensory deficits, alert, oriented x 3 Skin: normal color, warm/dry, no rash Laboratory Results Last 24 Hours Test 05/15/17 07:35 05/15/17 09:22 05/15/17 10:44 05/15/17 11:41 Bedside Glucose 269 mg/dl 238 mg/dl 213 mg/dl 202 mg/dl Test 05/15/17 12:50 05/15/17 13:58 05/15/17 16:14 05/15/17 17:34 Bedside Glucose 181 mg/dl 161 mg/dl 121 mg/dl 111 mg/dl Test 05/15/17 20:23 05/16/17 00:52 Bedside Glucose 120 mg/dl 119 mg/dl Assessment and Plan Assessment and Plan: This is a 52yo male with a history of T2DM uncontrolled on insulin, CAD x5 MIs s /p pacer/defib placement, and multiple episodes of pancreatitis who presented to the ED with epigastric pain and elevated lipase consistent with acute mild pancreatitis. He is hemodynamically stable. He does not drink alcohol, no recent trauma, no narcotic pain medication, no history of biliary tract disease or instrumentation, no history of hypercalcemia, no recent infection, triglycerides modestly elevated at 261. It is possible that his recurrent pancreatitis is secondary to pancreatic burnout from increasing insulin resistance. He is feeling much better now and is medically stable for discharge pending successful advancement of PO intake. 1. Pancreatitis -3rd incidence in the past 6 years -lipase 2490 on admission, trending down 1872 on 05/15: will follow his symptoms and PO tolerance rather than lipase moving forward -did well with clear liquids, will advance to softs and will monitor tolerance -IV nss + KCl 20meq @ 200mls/hr -PRN morphine 2mg IV q6h prn pain -nutrition education 2. T2DM, uncontrolled on insulin -Accuchecks q1h until within goal BSG 140-180 x3, then q2h until within goal x3 , then q4h -stopped insulin drip for hypoglycemia overnight -started insulin basal-bolus sliding scale -gabapentin 200mg PO TID for neuropathy 3. CAD with hx of 5 MIs, pacer/defib, stent placement -ASA 81mg PO daily -clopidogrel 75mg PO daily -rosuvastatin 40mg PO daily -furosemide 40mg PO daily # HTN -amlodipine 5mg PO daily -carvedilol 50mg PO BID -lisinopril 40mg PO daily # VIVIAN -CPAP QHS # COPD -fluticasone/salmeterol (Advair) # GERD -pantoprazole 40mg PO daily # Depression -citalopram 20mg PO daily # Tobacco use -nicotine patch prn # Diet -NPO, plan for starting clear liquids 8/16 AM as tolerated # DVT prophylaxis -heparin 5000U q8h -patient may ambulate as tolerated # Discharge planning -Location: home -Date: 05/16/17 Continued [facility] stay due to: multiple IV medications needed Discharge planning: home Reviewed: Pt Seen/Exam by Me History See my note for details. Assessment/Plan 52 y/o M who was admitted on 05/14 with epigastric pain and elevated lipase consistent with acute mild pancreatitis and hx of same. Pancreatitis: improving, likely related to uncontrolled DM status -lipase 2490 on admission and improving, no need to recheck lipase given clinically improving CT AP neg for pancreatitis, however pt with hx of same and sx are similar with elevated lipase -Tolerating diet without issue now that pain is resolved DM: uncontrolled on home insulin with A1c 8.7 f/u with [facility] Fawad as scheduled prior -gabapentin 200mg PO TID for neuropathy CAD with hx of 5 MIs, pacer/defib, stent placement -ASA 81mg PO daily -clopidogrel 75mg PO daily -rosuvastatin 40mg PO daily -furosemide 40mg PO daily HTN -amlodipine 5mg PO daily -carvedilol 50mg PO BID -lisinopril 40mg PO daily VIVIAN -CPAP QHS COPD Advair as prior GERD -pantoprazole 40mg PO daily Depression -citalopram 20mg PO daily
[2017-05-16] MEDS ORDERED: NURSING DECISION MEDICATION ORDER SCH ×2 (08:30→10:45)
[2017-05-16] MEDS: INSULIN ASPART 100 UNITS/ML 3 ML PEN SC SCH (08:37)
[2017-05-16] MEDS: FLUTICASONE/SALMETEROL 250/50 (ADVAIR) 14 PUFF/1 INHALER INH SCH (08:39)
[2017-05-16] MEDS: NICOTINE 14 MG/24 HR TDSY TD SCH (08:40)
[2017-05-16] MEDS: GABAPENTIN 100 MG CAP PO SCH ×2 (08:41→13:36)
[2017-05-16] MEDS: ROSUVASTATIN CALCIUM 20 MG TAB PO SCH (08:42)
[2017-05-16] MEDS: CLOPIDOGREL BISULFATE 75 MG TAB PO SCH (08:42)
[2017-05-16] MEDS: ASPIRIN 81 MG ECTAB PO SCH (08:42)
[2017-05-16] MEDS: PANTOprazole SOD 40 MG TAB PO SCH (08:42)
[2017-05-16] MEDS: AMLODIPINE BESYLATE 5 MG TAB PO SCH (08:42)
[2017-05-16] MEDS: CARVEDILOL 25 MG TAB PO SCH (08:42)
[2017-05-16] MEDS: CITALOPRAM 20 MG TAB PO SCH (08:42)
[2017-05-16] MEDS: LISINOPRIL 40 MG TAB PO SCH (08:43)
[2017-05-16] MEDS ORDERED: INSULIN ASPART 100 UNITS/ML 3 ML PEN SC STA ×2 (11:13→13:26)
[2017-05-16] MEDS ORDERED: INSULIN ASPART 100 UNITS/ML 3 ML PEN SC SCH ×2 (12:00→16:30)
[2017-05-16] MEDS ORDERED: NURSING VERBAL MED ORDER ONE ×2 (13:30→15:15)
[2017-05-16 15:00] VITALS: BP 108/71; PULSE 74; TEMP 36.9; O2SAT 95
--- NOTE | 2017-05-16 15:06 | Discharge Instructions ---
Discharge Instructions Date of Service May 16, 2017. Admission Reason for Admission: Hyperglycemia, Pancreatitis Discharge Discharge Diagnosis / Problem: Pancreatitis Discharge Goals Goal(s): Decrease discomfort, Improve function, Increase independence Activity Recommendations Activity Limitations: resume your previous activity . Instructions / Follow-Up Instructions / Follow-Up Dr. [place] next week Lilly Fawad next week You should avoid foods high in fat, sugar, or carbs to avoid irritation to your pancreas. You should also avoid heavy meals or greasy foods as this may also irritate your pancreas. You should focus on water as your primary beverage and keep well hydrated. Call your Primary Care doctor if any of the following symptoms or problems start or get worse: * Shortness of breath or difficulty breathing * Wake up at night short of breath * Chest pain * Cough * Swelling of your hands, feet, or legs * More fatigued or tired with your normal activity * Palpitations - sudden fast heart beats WEIGHT * Weigh yourself every morning after using the bathroom. * Use the same scale. * Wear the same amount of clothing. * Write your weight down on a chart. * Call your Primary Care doctor if you gain more than 2-3 pounds in 1-2 days. MEDICATIONS * Use this discharge instruction sheet for medication instructions. * Take your medications at the time your doctor ordered. * Do not skip a dose of your medicines. * If you miss a dose of medicine, take it as soon as possible, but DO NOT DOUBLE A DOSE. * Read your medicine information when you get home. * Know all of the side effects of your medicine. If in doubt, ask your pharmacist * Call your Primary Care doctor's office if you have any side effects. * Be sure all of your doctors know what medicine and herbs you take (including cold, flu, and herbal medicine). Take the following with you to your follow-up doctor appointments: * Weight Chart * Medication List * List of questions Do not drink excessive alcohol, beer or wine. Current Hospital Diet Patient's current hospital diet: AHA Diet (Heart Healthy), Diabetes Type 2 Diet Discharge Diet Recommended Diet: AHA Diet (Heart Healthy), Diabetes Type 2 Diet Pending Studies Studies pending at discharge: no Laboratory Results Hemoglobin A1c Test 05/15/17 06:10 Range/Units Estimated Average Glucose 203 mg/dl Hemoglobin A1c 8.7 H 4.5-5.6 % Lipid Panel Test 05/14/17 20:40 Range/Units Triglycerides Level 261 H 0-150 mg/dl Medical Emergencies . Who to Call and When: Call 911 or go to the Emergency Room if: * If at any time you feel your situation is an emergency * You have tightness or pain in your chest that does not go away with rest or Nitroglycerin * You are very short of breath even with rest . Non-Emergent Contact Non-Emergency issues call your: Primary Care Provider . . "Provider Documentation" section prepared by Jazz Porter. . VTE Core Measure Inpt VTE Proph given/why not?: Unfractionated heparin SQ
[2017-05-16] MEDS ORDERED: INSULIN ASPART 100 UNITS/ML 3 ML PEN SC ONE (15:15)
[2017-05-16 15:40] VITALS: BP 108/71; PULSE 74; TEMP 36.9; O2SAT 95
--- NOTE | 2017-05-16 15:42 | Discharge Summary ---
Discharge Summary Date of Service May 16, 2017. Discharge Summary Admission Date: May 14, 2017 at 22:24 Discharge Date: May 16, 2017 Discharge Disposition: Home Principal Diagnosis: Acute pancreatitis Problems/Secondary Diagnoses: DM HTN Hyperlipidemia CAD s/p IA x5 Pacer/defibrillator Anx/dep Hx of pancreatitis COPD CHF GERD VIVIAN on CPAP Hepatic steatosis Immunizations: Have You Had Influenza Vaccine: N/A Influenza Vaccine Date: Jul 08, 2012 History of Tetanus Vaccine?: UTD History of Pneumococcal: Yes History of Hepatitis B Vaccine: Unknown Medication Reconciliation Continued Medications: Albuterol (Ventolin Hfa) Aers 1-2 PUFFS INH Q4H PRN for SOB/Wheezing Amlodipine (Norvasc) 5 Mg Tab 5 MG PO DAILY, 0 Refills Aspirin (Aspirin Ec) 81 Mg Tab 81 MG PO DAILY Carvedilol (Coreg) 25 Mg Tab 50 MG PO BID, TAB Citalopram Hydrobromide (Citalopram Hydrobromide) 20 Mg Tab 20 MG PO DAILY Clopidogrel (Plavix) 75 Mg Tab 75 MG PO DAILY Fluticasone Prop/Salmeterol (Advair Diskus 250/50 60 Dose) 1 Ea Aerp 1 PUFF INH BID, INHALER Furosemide (Lasix) 40 Mg Tab 40 MG PO DAILY, TAB Gabapentin (Neurontin) 100 Mg Cap 200 MG PO TID, CAP Insulin Aspart (Novolog) Inj 0 SC AC, BTL COVER BLOOD SUGARS AND CARBS AT MEALS AND SNACK. 200 UNITS TOTAL DAILY DOSE. TAKE NO INSULIN IF BLOOD SUGAR IS 120 OR LOWER. Insulin Glargine (Lantus) 100 Unit/Ml Inj 100 UNITS SQ QAM, VIAL Insulin Glargine (Lantus) 100 Unit/Ml Inj 65 UNITS SQ QPM, VIAL Lisinopril (Zestril) 40 Mg Tab 40 MG PO DAILY Metformin Hcl (Glucophage) 500 Mg Tab 1000 MG PO HS, TAB Mometasone Furoate-Formoterol (Dulera 100/5 Mcg) 1 Aer Aer 2 PUFFS INH BID PRN for SOB/Wheezing Omeprazole (Prilosec) 40 Mg Capcr 40 MG PO DAILY, CAP Potassium Chloride (Micro-K Ext Rel) 10 Meq Capcr 20 MEQ PO DAILY, CAP Rosuvastatin Calcium (Crestor) 40 Mg Tab 40 MG PO DAILY, TAB Tiotropium [place] (Spiriva Handihaler) 30 Puff/540 Mcg Aerp 1 CAP INH DAILY PRN for SOB/Wheezing, INHALER Triamterene/Hctz (Dyazide 37.5MG/25MG) Cap 1 CAP PO Q2D, CAP Zolpidem Tartrate (Ambien) 5 Mg Tab 5-10 MG PO HS PRN for Anxiety/Insomnia, TAB Discharge Exam Pt is feeling much improved. He tolerated clears late this AM and then a soft diet for lunch. He has had no return of pain or other intolerance to PO. Pt denies fever, SOB, chest pain, n/v/c/d, LE pain or swelling. Physical Exam: General Appearance: no apparent distress, + obese Respiratory/Chest: normal breath sounds, no respiratory distress Cardiovascular: regular rate, rhythm, no edema Abdomen / GI: non tender, soft, + distended (improving) Extremities: no calf tenderness, no pedal edema Neurologic/Psychiatric: alert, normal mood/affect, oriented x 3 Skin: normal color, warm/dry Hospital Course 52 y/o M who was admitted on 05/14 with epigastric pain and elevated lipase consistent with acute mild pancreatitis and hx of same. Pancreatitis: improving, likely related to uncontrolled DM status -lipase 2490 on admission and improving, no need to recheck lipase given clinically improving CT AP neg for pancreatitis, however pt with hx of same and sx are similar with elevated lipase -Tolerating diet without issue now that pain is resolved DM: uncontrolled on home insulin with A1c 8.7 f/u with Lilly Fawad as scheduled prior -gabapentin 200mg PO TID for neuropathy CAD with hx of 5 MIs, pacer/defib, stent placement -ASA 81mg PO daily -clopidogrel 75mg PO daily -rosuvastatin 40mg PO daily -furosemide 40mg PO daily HTN -amlodipine 5mg PO daily -carvedilol 50mg PO BID -lisinopril 40mg PO daily VIVIAN -CPAP QHS COPD Advair as prior GERD -pantoprazole 40mg PO daily Depression -citalopram 20mg PO daily Total Time Spent: Greater than 30 minutes This includes examination of the patient, discharge planning, medication reconciliation, and communication with other providers. Discharge Instructions Please refer to the electronic Patient Visit Report (Discharge Instructions) for additional information. Additional Copies To Pro,Rusty Borges M.D.; Fawad, Noelle Grigsby
[2017-06-15] MEDS ORDERED: CYM/30 PO (08:28)
[2017-06-15] MEDS ORDERED: MTH25 PO (08:28)
[2017-06-15] MEDS ORDERED: TRAM-10 PO (08:28)
[2017-06-15] MEDS ORDERED: FLV1 PO (08:28)
== END 2017-05-16 15:55 | disposition home or self-care (01) | DRG 440 ==
LOC: C.EDB 20:02 → C.MS2W 22:24 → ENRESERV 22:59
PROVIDERS: ADMIT Internal Medicine; ATTEND Family Medicine
DX: K85.90 Acute pancreatitis without necrosis or infection, unspecified (principal); E11.65 Type 2 diabetes mellitus with hyperglycemia; I25.10 Atherosclerotic heart disease of native coronary artery without angina pectoris; I50.9 Heart failure, unspecified; I25.2 Old myocardial infarction; I11.0 Hypertensive heart disease with heart failure; E78.5 Hyperlipidemia, unspecified; J44.9 Chronic obstructive pulmonary disease, unspecified; K21.9 Gastro-esophageal reflux disease without esophagitis; K76.0 Fatty (change of) liver, not elsewhere classified; G47.33 Obstructive sleep apnea (adult) (pediatric); F41.9 Anxiety disorder, unspecified; F32.9 Major depressive disorder, single episode, unspecified; F17.200 Nicotine dependence, unspecified, uncomplicated; E66.01 Morbid (severe) obesity due to excess calories; Z68.39 Body mass index [BMI] 39.0-39.9, adult; Z99.89 Dependence on other enabling machines and devices; Z95.810 Presence of automatic (implantable) cardiac defibrillator; Z95.5 Presence of coronary angioplasty implant and graft; Z86.14 Personal history of Methicillin resistant Staphylococcus aureus infection; Z79.82 Long term (current) use of aspirin; Z79.02 Long term (current) use of antithrombotics/antiplatelets; Z79.51 Long term (current) use of inhaled steroids; Z79.4 Long term (current) use of insulin; Z79.84 Long term (current) use of oral hypoglycemic drugs; Z79.899 Other long term (current) drug therapy; R10.9 Unspecified abdominal pain

== ENCOUNTER → 2017-05-14 | Outpatient (CLI) | payer OTHER ==
[~2017-05-14] MED LIST changes: -CEFU1TAB36 PO; -KETO2SHA TOP; -NOVOLOG INJ; -OXYC-57 PO; -PRLSR20 PO; -VNTHFA/IN INH
[2017-05-14 17:01] LABS: BASO % 0.5 %; BASO ABS # 0.04 K/uL (0-0.2); COMPLETE YES; EOS % 4.2 %; HEMATOCRIT 45.3 % (42-52); IG% 0.2 %; LYMPH ABS # 1.54 K/uL (1.2-3.4); MEAN CELL VOLUME 90.2 fL (80-100); MEAN CORPUSCULAR HEMOGLOBIN 29.9 pg (25-34); MEAN CORPUSCULAR HGB CONC 33.1 g/dl (32-36); MONO % 6.5 %; NEUT % 69.6 %; PLATELET COUNT 159 K/uL (130-400); RED BLOOD COUNT 5.02 M/uL (4.7-6.1); WHITE BLOOD COUNT 8.12 K/uL (4.8-10.8)
[2017-05-14 17:02] LABS: URINE APPEARANCE CLEAR (CLEAR); URINE BILIRUBIN NEG (NEG); URINE COLOR YELLOW; URINE NITRITE NEG (NEG); URINE SPECIFIC GRAVITY 1.036 (1.000-1.030); UROBILINOGEN NEG (NEG); ZZUR CULT IF INDIC CLEAN CATCH NO
[2017-05-14 17:10] LABS: MANUAL MICROSCOPIC REQUIRED? NO; REVIEW REQ? NO
[2017-05-14 17:35] LABS: ALB/GLOB RATIO 1.1 (0.9-2); ALKALINE PHOSPHATASE 64 U/L (45-117); ALT/SGPT 29 U/L (12-78); AMYLASE 93 U/L (25-115); AST/SGOT 7 U/L (15-37); BLOOD UREA NITROGEN 8 mg/dl (7-18); BUN/CREATININE RATIO 10.4 (10-20); CALCIUM 9.5 mg/dl (8.5-10.1); CARBON DIOXIDE 28 mmol/L (21-32); CHLORIDE 103 mmol/L (98-107); CREATININE 0.73 mg/dl (0.60-1.40); POTASSIUM 4.9 mmol/L (3.5-5.1); SODIUM 137 mmol/L (136-145)
[2017-05-14 17:40] LABS: GLUCOSE 361 mg/dl (70-99)
[2017-05-14 17:57] LABS: BETA-HYDROXYBUTYRATE 1.45 mg/dL (0.2-2.81)
[2017-05-15 05:54] LABS: ESTIMATED AVERAGE GLUCOSE 203 mg/dl; HA1C FLAG Normal (Normal)
== END | disposition home or self-care (01) ==
LOC: C.LAB1850 15:47
PROVIDERS: ATTEND Nurse Practitioner Adult Health
DX: R10.9 Unspecified abdominal pain (principal); E11.65 Type 2 diabetes mellitus with hyperglycemia

== ENCOUNTER → 2017-06-08 | Outpatient (CLI) | payer OTHER ==
[~2017-06-08] MED LIST changes: -ASPEC81 PO; +ASPI81TA28 PO; -AZEL30SP NAE; +CYM/30 PO; +FLV1 PO; -INSDGI SC; +INSDGI SQ; +MTH25 PO; +SINCALIDE INJ 2.6 MCG in SODIUM CHLORIDE 0.9% 100ML 100 ML IV ONE; +TRAM-10 PO
--- NOTE | 2017-06-08 10:14 | DIAGNOSTIC IMAGING REPORT ---
HEPATOBILIARY EF IMAGING CLINICAL HISTORY: 52 years-old Male with ACUTE RECURRENT PANCREATITIS. History of acute pancreatitis. Initial exam. TECHNIQUE: Following the intravenous administration of 5.5 mCi of technetium-99m Choletec, sequential abdominal images were obtained. In order to evaluate the contractile response of the gallbladder, 2.6 mcg of Kinevac was administered by slow intravenous infusion over 30 min starting approximately 60 min after the administration of the radiopharmaceutical. Sequential imaging was continued for 45 min after the start of the Kinevac infusion. COMPARISON: CT abdomen and pelvis 05/14/2017 FINDINGS: There is prompt, uniform accumulation of the tracer by the liver. There is normal filling of the intrahepatic ducts, common bile duct and gallbladder and normal excretion of the tracer into the duodenum. There is adequate contraction of the gallbladder. The calculated gallbladder ejection fraction is 96% (normal >40%). There is mild enterogastric reflux. IMPRESSION: 1. Normal contractile response of the gallbladder to Kinevac infusion. 2. Mild enterogastric reflux. The above report was generated using voice recognition software. It may contain grammatical, syntax or spelling errors. Electronically signed by: Melquiades Garcia M.D. 06/08/2017 10:13 AM Dictated Date/Time: 06/08/2017 10:10 AM
== END | disposition home or self-care (01) ==
LOC: C.NUCL 07:20
PROVIDERS: ATTEND Registered Nurse
DX: K85.90 Acute pancreatitis without necrosis or infection, unspecified (principal); R10.13 Epigastric pain

== ENCOUNTER → 2017-06-12 | Outpatient (CLI) | payer OTHER ==
[~2017-06-12] MED LIST changes: -SINCALIDE INJ 2.6 MCG in SODIUM CHLORIDE 0.9% 100ML 100 ML IV ONE
[2017-06-12 10:13] LABS: BASO % 0.6 %; BASO ABS # 0.04 K/uL (0-0.2); COMPLETE YES; EOS % 4.1 %; IG% 0.1 %; LYMPH % 17.2 %; LYMPH ABS # 1.25 K/uL (1.2-3.4); MEAN CELL VOLUME 91.1 fL (80-100); MEAN CORPUSCULAR HEMOGLOBIN 30.6 pg (25-34); MEAN CORPUSCULAR HGB CONC 33.6 g/dl (32-36); MEAN PLATELET VOLUME 11.1 fL (7.4-10.4); MONO % 5.8 %; NEUT % 72.2 %; PLATELET COUNT 133 K/uL (130-400); RED BLOOD COUNT 4.61 M/uL (4.7-6.1); WHITE BLOOD COUNT 7.26 K/uL (4.8-10.8)
[2017-06-12 10:38] LABS: BLOOD UREA NITROGEN 14 mg/dl (7-18); BUN/CREATININE RATIO 22.6 (10-20); CALCIUM 8.9 mg/dl (8.5-10.1); CARBON DIOXIDE 29 mmol/L (21-32); CHLORIDE 104 mmol/L (98-107); CREATININE 0.62 mg/dl (0.60-1.40); GLUCOSE 161 mg/dl (70-99); POTASSIUM 3.9 mmol/L (3.5-5.1); SODIUM 139 mmol/L (136-145)
[2017-06-12 10:39] LABS: ALT/SGPT 24 U/L (12-78); AST/SGOT 9 U/L (15-37)
[2017-06-12 10:41] LABS: ALB/GLOB RATIO 1.3 (0.9-2); ALKALINE PHOSPHATASE 56 U/L (45-117); AMYLASE 47 U/L (25-115)
== END | disposition home or self-care (01) ==
LOC: C.LAB1850 09:29
PROVIDERS: ATTEND Registered Nurse
DX: K85.90 Acute pancreatitis without necrosis or infection, unspecified (principal); R10.13 Epigastric pain

== ENCOUNTER 2017-07-20 09:25 | Day surgery (SDC) | payer OTHER ==
[2017-06-15 08:29] VITALS: BMI 39.0
[~2017-07-20] VITALS: Ht 182.9 cm; Wt 131.0 kg
--- NOTE | 2017-07-20 09:03 | Endo History and Physical ---
History & Physical Date of Service: Jul 20, 2017. Chief Complaint: Referring Physician: History of Present Illness Branden Pugh is a 51-year-old gentleman referred from Dr. Carter hernandez for recurrent pancreatitis. He has been having recurrent pancreatitis number of episodes of the last 4 years. Without an etiology being identified. Serologic workup has been nonrevealing as a cause. He denies alcohol, and CT scans been nonrevealing. Past Medical History Diabetes, Angioplasty/Stent, Fractures, Pacemaker, Asthma, Anxiety, Reflux, High Cholesterol, Sleep Apnea, Heart Disease, Hypertension, COPD, Implantable Defibrillator, Depression, [place] Past Surgical History Hx Cardiac Surgery: Yes (CARDIAC CATH WITH STENT, PACEMAKER/DEFIB IMPLANT) Hx Internal Defibrillator: No Hx Pacemaker: No Hx Abdominal Surgery: No Hx Post-Op Nausea and Vomiting: Yes Hx Cancer Surgery: Yes Hx Thoracic Surgery: No Hx Orthopedic: Yes (LEFT SHOULD RCR) Hx Urinary Tract Surgery: No Social History Smoking Status: Current Every Day Smoker Hx Substance Use: No Hx Alcohol Use: No Allergies Coded Allergies: Lactose (Verified Allergy, Mild, GI INTOLERANCE, 07/20/17) Felodipine (Verified Allergy, Unknown, UNKNOWN, PT STATES HIS PCP SAID NOT TO TAKE, 07/20/17) Current Medications Reported Home Medications Medications Dose Route/Sig Max Daily Dose Days Date Category Dose Instructions Folic Acid 1 Mg Tab 1 Tab PO DAILY 06/15/17 Reported Methotrexate 2.5 Mg Tab 6 Tab PO Sunday06/15/17 Reported Ultram (Tramadol HCl) 50 Mg Tab 50 Mg PO Q4H PRN 06/15/17 Reported Cymbalta (Duloxetine HCl) 30 Mg Cap 1 Cap PO DAILY 30 06/15/17 Reported Aspirin Ec (Aspirin) 81 Mg Tab 81 Mg PO DAILY 05/14/17 Reported Lantus (Insulin Glargine) 100 Unit/Ml Inj 65 Units SQ QPM 05/14/17 Reported Lantus (Insulin Glargine) 100 Unit/Ml Inj 100 Units SQ QAM 05/14/17 Reported Spiriva Handihaler (Tiotropium [place]) 30 Puff/540 Mcg Aerp 1 Cap INH DAILY PRN 08/04/16 Reported Prilosec (Omeprazole) 40 Mg Capcr 40 Mg PO DAILY 08/04/16 Reported Lasix (Furosemide) 40 Mg Tab 40 Mg PO DAILY 08/04/16 Reported Dulera 100/5 Mcg (Mometasone Furoate-Formoterol) 1 Aer Aer 2 Puffs INH BID PRN 08/04/16 Reported Crestor (Rosuvastatin Calcium) 40 Mg Tab 40 Mg PO DAILY 08/04/16 Reported Micro-K Ext Rel (Potassium Chloride) 10 Meq Capcr 20 Meq PO DAILY 03/20/16 Reported Dyazide 37.5MG/25MG (Triamterene/HCTZ) Cap 1 Cap PO Q2D 03/20/16 Reported Novolog (Insulin Aspart) Inj 0 SC AC 04/07/13 Reported COVER BLOOD SUGARS AND CARBS AT MEALS AND SNACK. 200 UNITS TOTAL DAILY DOSE. TAKE NO INSULIN IF BLOOD SUGAR IS 120 OR LOWER. Ventolin Hfa (Albuterol) Aers 1-2 Puffs INH Q4H PRN 04/07/13 Reported Glucophage (Metformin Hcl) 500 Mg Tab 1,000 Mg PO HS 04/07/13 Reported Neurontin (Gabapentin) 100 Mg Cap 200 Mg PO TID 04/07/13 Reported Coreg (Carvedilol) 25 Mg Tab 50 Mg PO BID 04/07/13 Reported Advair Diskus 250/50 60 Dose (Fluticasone Prop/Salmeterol) 1 Ea Aerp 1 Puff INH BID 04/07/13 Reported Norvasc (Amlodipine Besylate) 5 Mg Tab 5 Mg PO DAILY 05/30/10 Reported Zestril (Lisinopril) 40 Mg Tab 40 Mg PO DAILY 06/19/06 Reported Plavix (Clopidogrel Bisulfate) 75 Mg Tab 75 Mg PO DAILY 06/19/06 Reported Vital Signs Weight (Kilograms): 131 Height (Feet): 6 Height (Inches): 0 Physical Exam General Appearance: WD/WN, no apparent distress, + obese Respiratory/Chest: Respiratory effort: no dyspnea Auscultation: breath sounds normal, CTA except as noted Cardiovascular: Apical Impulse: not displaced Heart Auscultation: RRR, normal S1, normal S2 Assessment and Plan Plan for EUS for recurrent pancreatitis
[~2017-07-20 09:25] MED LIST changes: -CITA20TA4 PO; +KETAMINE HCL INJ 50 MG/ML 10 ML VIAL ONE; +LIDOCAINE HCL 2% 2 ML VIAL (20MG/ML) ONE; +MIDAZOLAM HCL 1 MG/ML 2ML VIAL ONE; +PROPOFOL IV EMULSION 10 MG/ML 20 ML VIAL IV ONE; +SODIUM CHLORIDE 0.9% 500ML 500 ML IV ONE; -ZOLP5TAB PO
[2017-07-20 10:17] VITALS: BP 122/65; PULSE 77; TEMP 36.6; O2SAT 97; Ht 182.9 cm; Wt 131.0 kg
[2017-07-20] MEDS ORDERED: ETOMIDATE 2 MG/ML 20 ML VIAL IV ONE (11:39)
[2017-07-20] MEDS ORDERED: LIDOCAINE HCL 2% 2 ML VIAL (20MG/ML) ONE (11:39)
[2017-07-20] MEDS ORDERED: ATROPINE SULFATE 0.1 MG/ML 5ML SYR IV PRN (12:00)
[2017-07-20] MEDS ORDERED: ONDANSETRON INJ 2 MG/ML 2 ML VIAL IV PRN (12:00)
[2017-07-20] MEDS ORDERED: LABETALOL HCL IV 5 MG/ML 20ML IV PRN (12:00)
[2017-07-20] MEDS ORDERED: FENTANYL CITRATE INJ 50 MCG/1 ML 2 ML VIAL IV PRN (12:00)
--- NOTE | 2017-07-20 12:02 | Discharge Instructions ---
Endoscopy Patient Instructions Date / Procedure(s) Performed Jul 20, 2017. Other (Endoscopic ultrasound) Allergy Information Coded Allergies: Lactose (Verified Allergy, Mild, GI INTOLERANCE, 07/20/17) Felodipine (Verified Allergy, Unknown, UNKNOWN, PT STATES HIS PCP SAID NOT TO TAKE, 07/20/17) Discharge Date / Findings Jul 20, 2017. Gallstones Suggested chronic changes indeterminate risk for chronic pancreatitis Follow up with Dr. Anderson Provider Instructions Activity Restrictions - No exercising or heavy lifting for 24 hours. - Do not drink alcohol the day of the procedure. - Do not drive a car or operate machinery until the day after the procedure. - Do not make any important decisions or sign important papers in 24 hours after the procedure. Following Day: - Return to full activity which may include returning to work/school. Diet Start your diet with liquids and light foods (jello, soup, juice, toast). Then eat your usual diet if not nauseated. Treatment For Common After Affects For mild abdominal pain, bloating, or excessive gas: - Rest - Eat lightly - Lie on right side Follow-Up Information Follow-up with as scheduled Anesthesia Information What You Should Know You have had a procedure that required some medicine to reduce anxiety and discomfort. This treatment is called moderate sedation. After receiving the treatment, you may be sleepy, but you will be able to breathe on your own. The effects of the treatment may last for several hours. Follow these instructions along with Activity/Diet recommendations noted above: * Do NOT do anything where dizziness or clumsiness would be dangerous. * Rest quietly at home today, then you can be up and about tomorrow. * Have a responsible person stay with you the rest of today. * You may have had an I.V. today. If so, you may take the dressing off later today. Recommendations Call your doctor if: * Trouble breathing * Continuous vomiting for more than 24 hours * Temperature above 101 degrees * Severe abdominal pain or bloating * Pain not relieved by pain medicine ordered * There is increased drainage or redness from any incision * A large amount of rectal bleeding greater than 2-3 tablespoons. (If you had a polyp/s removed or have hemorrhoids, a small amount of blood - from the rectum is to be expected.) * You have any unanswered questions or concerns. IN THE EVENT OF A SERIOUS EMERGENCY, GO TO THE NEAREST EMERGENCY ROOM Your discharge instructions were prepared by provider Girish Pete. Patient Instructions Signature Page Branden Pugh Patient (or Guardian) Signature/Date: I have read and understand the instructions given to me by my caregivers. Caregiver/RN/Doctor Signature/Date: The above-named patient and/or guardian has received patient instructions on this date. + Original Patient Signature Page (only) stays with chart. Please make copy for patient.
--- NOTE | 2017-07-20 12:09 | GI REPORT ---
Procedure Date: 07/20/2017 11:06 AM Procedure: Upper EUS Indications: Acute recurrent pancreatitis Medicines: General Anesthesia Complications: No immediate complications. Estimated blood loss: None. Estimated Blood Loss: Estimated blood loss: none. Procedure: Pre-Anesthesia Assessment: - Pre-Anesthesia Assessment: - Prior to the procedure, a History and Physical was performed, and patient medications, allergies and sensitivities were reviewed. The patient's tolerance of previous anesthesia was reviewed. Please see Marquee for complete details. - The risks and benefits of the procedure and the sedation options and risks were discussed with the patient. All questions were answered and informed consent was obtained. - Patient identification and proposed procedure were verified prior to the procedure by the physician and the nurse. The procedure was verified in the pre-procedure area in the procedure room. After obtaining informed consent, the endoscope was passed carefully and meticuously under direct vision and only advanced when the lumen was clearly identified, C02 insuflation was utilized throughout the entirity of the procedure. Throughout the procedure, the patient's blood pressure, pulse, and oxygen saturations were monitored continuously. - Pre-Anesthesia Assessment: - Prior to the procedure, a History and Physical was performed, and patient medications, allergies and sensitivities were reviewed. The patient's tolerance of previous anesthesia was reviewed. Please see Marquee for complete details. - The risks and benefits of the procedure and the sedation options and risks were discussed with the patient. All questions were answered and informed consent was obtained. - Patient identification and proposed procedure were verified prior to the procedure by the physician and the nurse. The procedure was verified in the pre-procedure area in the procedure room. After obtaining informed consent, the endoscope was passed carefully and meticuously under direct vision and only advanced when the lumen was clearly identified, C02 insuflation was utilized throughout the entirity of the procedure. Throughout the procedure, the patient's blood pressure, pulse, and oxygen saturations were monitored continuously. After obtaining informed consent, the endoscope was passed under direct vision. Throughout the procedure, the patient's blood pressure, pulse, and oxygen saturations were monitored continuously. The Scope was introduced through the mouth, and advanced to the second part of duodenum. The upper EUS was accomplished without difficulty. The patient tolerated the procedure well. Findings: Endosonographic Finding : Pancreatic parenchymal abnormalities were noted in the entire pancreas. These consisted of hyperechoic foci with shadowing, lobularity with honeycombing and hyperechoic strands. Indeterminate risk for chronic pancreatitis Endosonographic imaging in the entire pancreas showed no cyst/pseudocyst and no mass. There was no sign of significant endosonographic abnormality in the common bile duct. The maximum diameter of the duct was 5 mm. No pathologic lymphadenopathy, no masses, no cysts, no calcifications, no stones, no biliary sludge, ducts of normal caliber and ducts with regular contour were identified. Multiple stones were visualized endosonographically in the gallbladder body. The stones were round. They were hyperechoic. There was no sign of significant endosonographic abnormality in the left lobe of the liver. No focal pathology with hyperechoic features from fatty infiltration were identified. Normal celiac axis Impression: - Pancreatic parenchymal abnormalities consisting of hyperechoic foci, lobularity with honeycombing and hyperechoic strands were noted in the entire pancreas. - There was no sign of significant pathology in the common bile duct. - Multiple stones were visualized endosonographically in the gallbladder body. - There was no evidence of significant pathology in the left lobe of the liver. - No specimens collected. Recommendation: - Discharge patient to home (with escort). - Return to referring physician as previously scheduled. - Consider prophylactic cholecystectomy - Consider MRCP as pancreas divisum could not be excluded from today's examination - Consider EGD from referring GI for duodenal biopsies for celiac disease Girish Pete MD 07/20/2017 12:08:51 PM This report has been signed electronically. Note Initiated On: 07/20/2017 11:06 AM I attest to the content of the Intraoperative Record and orders documented therein, exceptions below
[2017-07-20 12:30] VITALS: BP 142/66; PULSE 78; TEMP 36.6; O2SAT 94
--- NOTE | 2017-07-20 13:08 | Anesthesiology Progress Note ---
Anesthesia Post Op Note Date & Time Jul 20, 2017 at 13:08 Vital Signs Pain Intensity: 4 Vital Signs Past 12 Hours Date Time Temp Pulse Resp B/P (MAP) Pulse Ox O2 Delivery O2 Flow Rate FiO2 07/20/17 12:30 36.6 78 18 142/66 94 Room Air 07/20/17 12:25 36.1 85 16 126/80 97 Room Air 07/20/17 12:15 85 16 130/81 97 Room Air 07/20/17 12:05 36.1 90 16 144/85 100 Room Air 07/20/17 10:17 36.6 77 24 122/65 (84) 97 Room Air
[2017-07-31] MEDS ORDERED: PRLSR20 PO (11:42)
[2017-07-31] MEDS ORDERED: VNTHFA/IN INH (11:42)
[2017-07-31] MEDS ORDERED: CEFU1TAB36 PO (11:43)
== END 2017-07-20 13:54 | disposition home or self-care (01) ==
LOC: C.ACU 09:25
PROVIDERS: ATTEND Internal Medicine
DX: K85.90 Acute pancreatitis without necrosis or infection, unspecified (principal); K80.20 Calculus of gallbladder without cholecystitis without obstruction; E11.9 Type 2 diabetes mellitus without complications; Z95.5 Presence of coronary angioplasty implant and graft; Z95.0 Presence of cardiac pacemaker; F41.9 Anxiety disorder, unspecified; K21.9 Gastro-esophageal reflux disease without esophagitis; E78.00 Pure hypercholesterolemia, unspecified; G47.33 Obstructive sleep apnea (adult) (pediatric); I10 Essential (primary) hypertension; J44.9 Chronic obstructive pulmonary disease, unspecified; I25.2 Old myocardial infarction; I25.10 Atherosclerotic heart disease of native coronary artery without angina pectoris; Z87.81 Personal history of (healed) traumatic fracture; F17.200 Nicotine dependence, unspecified, uncomplicated; Z79.82 Long term (current) use of aspirin; Z79.4 Long term (current) use of insulin; Z87.442 Personal history of urinary calculi; E66.9 Obesity, unspecified; E32.9 Disease of thymus, unspecified; G47.00 Insomnia, unspecified; L40.9 Psoriasis, unspecified; H91.90 Unspecified hearing loss, unspecified ear

== ENCOUNTER → 2017-08-15 | Day surgery (SDC) | payer OTHER ==
[2017-07-31 11:50] VITALS: Ht 182.9 cm; Wt 131.8 kg
[~2017-08-15] VITALS: Ht 182.9 cm; Wt 131.8 kg
[~2017-08-15] MED LIST changes: -ALBUAER2 INH; +CEFU1TAB36 PO; -KETAMINE HCL INJ 50 MG/ML 10 ML VIAL ONE; -NVLGI SC; -OMEP40CA PO; +ONDANSETRON INJ 2 MG/ML 2 ML VIAL ONE; +PRLSR20 PO; -TRAM-10 PO; +VNTHFA/IN INH
--- NOTE | 2017-08-15 09:35 | Endo History and Physical ---
History & Physical Date of Service: Aug 15, 2017. Chief Complaint: Recurrent Pancreatitis Referring Physician: Dr. Gresham History of Present Illness 52 yo CM who presents for EGD secondary to recurrent pancreatitis. Past Medical History Diabetes, Angioplasty/Stent, Fractures, Pacemaker, Asthma, Anxiety, Reflux, High Cholesterol, Sleep Apnea, Heart Disease, Hypertension, COPD, Implantable Defibrillator, Depression, [place] Past Surgical History Hx Cardiac Surgery: Yes (CARDIAC CATH WITH STENT TOTAL 4, PACEMAKER/DEFIB IMPLANT-2013) Hx Internal Defibrillator: No Hx Pacemaker: No Hx Abdominal Surgery: No Hx of Implantable Prosthesis: No Hx Post-Op Nausea and Vomiting: Yes (PONV) Hx Cancer Surgery: No Hx Thoracic Surgery: No Hx Orthopedic: Yes (LEFT SHOULDER RCR) Hx Urinary Tract Surgery: No Family History Polyp Social History Smoking Status: Current Every Day Smoker Hx Substance Use: No Hx Alcohol Use: No Allergies Coded Allergies: Lactose (Verified Allergy, Mild, GI INTOLERANCE, 07/31/17) Felodipine (Verified Allergy, Unknown, UNKNOWN, PT STATES HIS PCP SAID NOT TO TAKE, 07/31/17) Current Medications Reported Home Medications Medications Dose Route/Sig Max Daily Dose Days Date Category Dose Instructions Cefuroxime Axetil 500 Mg Tab 1 Tab PO Q12H 10 07/31/17 Reported Prilosec (Omeprazole) 20 Mg Capcr 40 Mg PO QAM 07/31/17 Reported Ventolin Hfa (Albuterol) 200 Puffs/91048 Mcg Aers 2 Puffs INH Q6H PRN 07/31/17 Reported Folic Acid 1 Mg Tab 1 Tab PO QAM 06/15/17 Reported Methotrexate 2.5 Mg Tab 6 Tab PO Sunday06/15/17 Reported Cymbalta (Duloxetine HCl) 30 Mg Cap 1 Cap PO QAM 30 06/15/17 Reported Aspirin Ec (Aspirin) 81 Mg Tab 81 Mg PO QAM 05/14/17 Reported Lantus (Insulin Glargine) 100 Unit/Ml Inj 65 Units SQ QPM 05/14/17 Reported Lantus (Insulin Glargine) 100 Unit/Ml Inj 100 Units SQ QAM 05/14/17 Reported Spiriva Handihaler (Tiotropium [place]) 30 Puff/540 Mcg Aerp 1 Cap INH DAILY PRN 08/04/16 Reported Lasix (Furosemide) 40 Mg Tab 40 Mg PO Q2D 08/04/16 Reported AM Dulera 100/5 Mcg (Mometasone Furoate-Formoterol) 1 Aer Aer 2 Puffs INH BID PRN 08/04/16 Reported Crestor (Rosuvastatin Calcium) 40 Mg Tab 40 Mg PO QAM 08/04/16 Reported Micro-K Ext Rel (Potassium Chloride) 10 Meq Capcr 20 Meq PO QPM 03/20/16 Reported Dyazide 37.5MG/25MG (Triamterene/HCTZ) Cap 1 Cap PO Q2D 03/20/16 Reported AM Glucophage (Metformin Hcl) 500 Mg Tab 1,000 Mg PO HS 04/07/13 Reported Neurontin (Gabapentin) 100 Mg Cap 200 Mg PO TID 04/07/13 Reported Coreg (Carvedilol) 25 Mg Tab 50 Mg PO BID 04/07/13 Reported Advair Diskus 250/50 60 Dose (Fluticasone Prop/Salmeterol) 1 Ea Aerp 1 Puff INH BID PRN 04/07/13 Reported Norvasc (Amlodipine Besylate) 5 Mg Tab 5 Mg PO QAM 05/30/10 Reported Zestril (Lisinopril) 40 Mg Tab 40 Mg PO QAM 06/19/06 Reported Plavix (Clopidogrel Bisulfate) 75 Mg Tab 75 Mg PO QAM 06/19/06 Reported Vital Signs Weight (Kilograms): 131.82 Height (Feet): 6 Height (Inches): 0 Physical Exam General Appearance: WD/WN, no apparent distress Respiratory/Chest: Auscultation: breath sounds normal Cardiovascular: Heart Auscultation: RRR Abdomen: Bowel Sounds: normal Inspection & Palpation: soft, non-distended, no tenderness, guarding & rebound Assessment and Plan Assessment: 52 yo CM who presents for EGD secondary to recurrent pancreatitis. Plan: Proceed with EGD.
[2017-08-15 09:46] VITALS: TEMP 36.7
--- NOTE | 2017-08-15 10:17 | GI REPORT ---
Procedure Date: 08/15/2017 10:04 AM Procedure: Upper GI endoscopy Indications: Pancreatitis Medicines: Monitored Anesthesia Care Complications: No immediate complications. Estimated Blood Loss: Estimated blood loss: none. Procedure: Pre-Anesthesia Assessment: - Prior to the procedure, a History and Physical was performed, and patient medications and allergies were reviewed. The patient's tolerance of previous anesthesia was also reviewed. The risks and benefits of the procedure and the sedation options and risks were discussed with the patient. All questions were answered, and informed consent was obtained. Prior Anticoagulants: The patient last took aspirin 1 day and Plavix (clopidogrel) 1 day prior to the procedure. ASA Grade Assessment: IV - A patient with severe systemic disease that is a constant threat to life. After reviewing the risks and benefits, the patient was deemed in satisfactory condition to undergo the procedure. After obtaining informed consent, the endoscope was passed under direct vision. Throughout the procedure, the patient's blood pressure, pulse, and oxygen saturations were monitored continuously. The scope was introduced through the mouth, and advanced to the second part of duodenum. The upper GI endoscopy was accomplished without difficulty. The patient tolerated the procedure well. Findings: The esophagus was normal. A small hiatus hernia was present. Three non-bleeding superficial gastric ulcers with no stigmata of bleeding were found in the gastric antrum. The largest lesion was 4 mm in largest dimension. Biopsies were taken with a cold forceps for histology. The examined duodenum was normal. Biopsies for histology were taken with a cold forceps for evaluation of celiac disease. Impression: - Normal esophagus. - Small hiatus hernia. - Non-bleeding gastric ulcers with no stigmata of bleeding. Biopsied. - Normal examined duodenum. Biopsied. Recommendation: - Resume previous diet. - Continue present medications. - Await pathology results. - Return to primary care physician as previously scheduled. Carter Anderson, DO 08/15/2017 10:17:02 AM This report has been signed electronically. Note Initiated On: 08/15/2017 10:04 AM I attest to the content of the Intraoperative Record and orders documented therein, exceptions below
--- NOTE | 2017-08-15 10:18 | Discharge Instructions ---
Endoscopy Patient Instructions Date / Procedure(s) Performed Aug 15, 2017. EGD Allergy Information Coded Allergies: Lactose (Verified Allergy, Mild, GI INTOLERANCE, 07/31/17) Felodipine (Verified Allergy, Unknown, UNKNOWN, PT STATES HIS PCP SAID NOT TO TAKE, 07/31/17) Discharge Date / Findings Aug 15, 2017. Gastric ulcers s/p biopsies Hiatal hernia Duodenal biopsies to evaluate for Celiac disease Medication Instructions Stopped Medication(s): Plavix stopped 08/09/17 Lantus instructed to take 1/2 dose last christiano. OK to resume all medications today as prescribed Reported Home Medications Medications Dose Route/Sig Max Daily Dose Days Date Category Dose Instructions Prilosec (Omeprazole) 20 Mg Capcr 40 Mg PO QAM 07/31/17 Reported Ventolin Hfa (Albuterol) 200 Puffs/63556 Mcg Aers 2 Puffs INH Q6H PRN 07/31/17 Reported Folic Acid 1 Mg Tab 1 Tab PO QAM 06/15/17 Reported Methotrexate 2.5 Mg Tab 6 Tab PO Sunday06/15/17 Reported Cymbalta (Duloxetine HCl) 30 Mg Cap 1 Cap PO QAM 30 06/15/17 Reported Aspirin Ec (Aspirin) 81 Mg Tab 81 Mg PO QAM 05/14/17 Reported Lantus (Insulin Glargine) 100 Unit/Ml Inj 65 Units SQ QPM 05/14/17 Reported Lantus (Insulin Glargine) 100 Unit/Ml Inj 100 Units SQ QAM 05/14/17 Reported Spiriva Handihaler (Tiotropium Bivalve) 30 Puff/540 Mcg Aerp 1 Cap INH DAILY PRN 08/04/16 Reported Lasix (Furosemide) 40 Mg Tab 40 Mg PO Q2D 08/04/16 Reported AM Dulera 100/5 Mcg (Mometasone Furoate-Formoterol) 1 Aer Aer 2 Puffs INH BID PRN 08/04/16 Reported Crestor (Rosuvastatin Calcium) 40 Mg Tab 40 Mg PO QAM 08/04/16 Reported Micro-K Ext Rel (Potassium Chloride) 10 Meq Capcr 20 Meq PO QPM 03/20/16 Reported Dyazide 37.5MG/25MG (Triamterene/HCTZ) Cap 1 Cap PO Q2D 03/20/16 Reported AM Glucophage (Metformin Hcl) 500 Mg Tab 1,000 Mg PO HS 04/07/13 Reported Neurontin (Gabapentin) 100 Mg Cap 200 Mg PO TID 04/07/13 Reported Coreg (Carvedilol) 25 Mg Tab 50 Mg PO BID 04/07/13 Reported Advair Diskus 250/50 60 Dose (Fluticasone Prop/Salmeterol) 1 Ea Aerp 1 Puff INH BID PRN 04/07/13 Reported Norvasc (Amlodipine Besylate) 5 Mg Tab 5 Mg PO QAM 05/30/10 Reported Zestril (Lisinopril) 40 Mg Tab 40 Mg PO QAM 06/19/06 Reported Plavix (Clopidogrel Bisulfate) 75 Mg Tab 75 Mg PO QAM 06/19/06 Reported Provider Instructions Activity Restrictions - No exercising or heavy lifting for 24 hours. - Do not drink alcohol the day of the procedure. - Do not drive a car or operate machinery until the day after the procedure. - Do not make any important decisions or sign important papers in 24 hours after the procedure. Following Day: - Return to full activity which may include returning to work/school. Diet Start your diet with liquids and light foods (jello, soup, juice, toast). Then eat your usual diet if not nauseated. Treatment For Common After Affects For mild abdominal pain, bloating, or excessive gas: - Rest - Eat lightly - Lie on right side Follow-Up Information Follow-up with Dr. Gresham as scheduled Anesthesia Information What You Should Know You have had a procedure that required some medicine to reduce anxiety and discomfort. This treatment is called moderate sedation. After receiving the treatment, you may be sleepy, but you will be able to breathe on your own. The effects of the treatment may last for several hours. Follow these instructions along with Activity/Diet recommendations noted above: * Do NOT do anything where dizziness or clumsiness would be dangerous. * Rest quietly at home today, then you can be up and about tomorrow. * Have a responsible person stay with you the rest of today. * You may have had an I.V. today. If so, you may take the dressing off later today. Recommendations Call your doctor if: * Trouble breathing * Continuous vomiting for more than 24 hours * Temperature above 101 degrees * Severe abdominal pain or bloating * Pain not relieved by pain medicine ordered * There is increased drainage or redness from any incision * A large amount of rectal bleeding greater than 2-3 tablespoons. (If you had a polyp/s removed or have hemorrhoids, a small amount of blood - from the rectum is to be expected.) * You have any unanswered questions or concerns. IN THE EVENT OF A SERIOUS EMERGENCY, GO TO THE NEAREST EMERGENCY ROOM Your discharge instructions were prepared by provider Carter Anderson. Patient Instructions Signature Page Branden Pugh Patient (or Guardian) Signature/Date: I have read and understand the instructions given to me by my caregivers. Caregiver/RN/Doctor Signature/Date: The above-named patient and/or guardian has received patient instructions on this date. + Original Patient Signature Page (only) stays with chart. Please make copy for patient.
[2017-08-15 10:45] VITALS: BP 119/74; PULSE 69; O2SAT 97
--- NOTE | 2017-08-15 10:48 | Anesthesiology Progress Note ---
Anesthesia Post Op Note Date & Time Aug 15, 2017 at 10:48 Vital Signs Pain Intensity: 0 Vital Signs Past 12 Hours Date Time Temp Pulse Resp B/P (MAP) Pulse Ox O2 Delivery O2 Flow Rate FiO2 08/15/17 10:45 69 20 119/74 (89) 97 Room Air 08/15/17 10:32 74 20 114/68 (83) 96 Room Air 08/15/17 10:18 77 20 111/64 (80) 98 Room Air 08/15/17 09:46 36.7 67 20 134/66 (88) 97 Room Air Notes Mental Status: alert / awake / arousable, participated in evaluation Pt Amnestic to Procedure: Yes Nausea / Vomiting: adequately controlled Pain: adequately controlled Airway Patency, RR, SpO2: stable & adequate BP & HR: stable & adequate Hydration State: stable & adequate Anesthetic Complications: no major complications apparent
== END | disposition home or self-care (01) ==
LOC: C.GI 09:06
PROVIDERS: ATTEND Internal Medicine
DX: K85.90 Acute pancreatitis without necrosis or infection, unspecified (principal); K44.9 Diaphragmatic hernia without obstruction or gangrene; K25.9 Gastric ulcer, unspecified as acute or chronic, without hemorrhage or perforation; I25.2 Old myocardial infarction; I25.10 Atherosclerotic heart disease of native coronary artery without angina pectoris; J44.9 Chronic obstructive pulmonary disease, unspecified; E11.9 Type 2 diabetes mellitus without complications; G47.33 Obstructive sleep apnea (adult) (pediatric); J45.909 Unspecified asthma, uncomplicated; K21.9 Gastro-esophageal reflux disease without esophagitis; E78.00 Pure hypercholesterolemia, unspecified; F32.9 Major depressive disorder, single episode, unspecified; F17.200 Nicotine dependence, unspecified, uncomplicated; Z98.890 Other specified postprocedural states; Z95.0 Presence of cardiac pacemaker; Z79.4 Long term (current) use of insulin; Z79.02 Long term (current) use of antithrombotics/antiplatelets; Z79.899 Other long term (current) drug therapy

== ENCOUNTER 2017-09-03 07:05 | Observation (INO) | payer OTHER ==
[2017-08-22 09:42] VITALS: BMI 38.0
[2017-08-22 10:20] LABS: BASO % 0.8 %; BASO ABS # 0.05 K/uL (0-0.2); COMPLETE YES; EOS % 4.3 %; HEMATOCRIT 43.5 % (42-52); IG% 0.3 %; LYMPH % 23.7 %; LYMPH ABS # 1.49 K/uL (1.2-3.4); MEAN CELL VOLUME 91.8 fL (80-100); MEAN CORPUSCULAR HEMOGLOBIN 30.8 pg (25-34); MEAN CORPUSCULAR HGB CONC 33.6 g/dl (32-36); MEAN PLATELET VOLUME 11.3 fL (7.4-10.4); MONO % 4.8 %; NEUT % 66.1 %; PLATELET COUNT 138 K/uL (130-400); RED BLOOD COUNT 4.74 M/uL (4.7-6.1)
[2017-08-22 10:31] LABS: INR 0.9 (0.9-1.1); PARTIAL THROMBOPLASTIN RATIO 0.9; PROTHROMBIN TIME (PATIENT) 10.1 SECONDS (9.0-12.0)
[2017-08-22 10:32] LABS: BUN/CREATININE RATIO 12.6 (10-20); CALCIUM 8.9 mg/dl (8.5-10.1); CREATININE 0.75 mg/dl (0.60-1.40); POTASSIUM 4.7 mmol/L (3.5-5.1)
--- NOTE | 2017-08-22 10:33 | PAT Medication Instructions ---
Service Date Aug 22, 2017. Current Home Medication List Albuterol Hfa (Ventolin Hfa), 2 PUFFS INH Q6H PRN for PRN Amlodipine (Norvasc), 5 MG PO QAM Aspirin (Aspirin Ec), 81 MG PO QAM Carvedilol (Coreg), 50 MG PO BID Clopidogrel (Plavix), 75 MG PO QAM Duloxetine HCl (Cymbalta), 60 MG PO QAM Fluticasone Prop/Salmeterol (Advair Diskus 250/50 60 Dose), 1 PUFF INH BID PRN for Shortness of Breath Folic Acid (Folic Acid), 1 TAB PO QAM Furosemide (Lasix), 40 MG PO Q2D Gabapentin (Neurontin), 200 MG PO TID Insulin Glargine (Lantus), 100 UNITS SQ QAM Insulin Glargine (Lantus), 65 UNITS SQ QPM Ketoconazole (Topical) (Ketoconazole), 1 APPLN TOP DAILY PRN for RN Lisinopril (Zestril), 40 MG PO QAM Metformin Hcl (Glucophage), 1,000 MG PO HS Methotrexate (Methotrexate), 3 TAB PO BID Mometasone Furoate-Formoterol (Dulera 100/5 Mcg), 2 PUFFS INH BID PRN for SOB/ Wheezing Omeprazole (Prilosec), 40 MG PO QAM Potassium Chloride (Micro-K Ext Rel), 20 MEQ PO QPM Rosuvastatin Calcium (Crestor), 40 MG PO QAM Tiotropium [place] (Spiriva Handihaler), 1 CAP INH DAILY PRN for SOB/Wheezing Tramadol (Ultram), 50 MG PO Q4H PRN for Pain Triamterene/Hctz (Dyazide 37.5MG/25MG), 1 CAP PO Q2D [Novolog], 1 DOSE INJ SC Medication Instructions For Your Scheduled Surgery - Hold the following medications 5 days prior to surgery per surgeon's instructions (OK per cardiology): Clopidogrel (Plavix), 75 MG PO QAM - Contact your surgeon and your prescriber for instructions: Aspirin (Aspirin Ec), 81 MG PO QAM Methotrexate (Methotrexate), 3 TAB PO BID - Hold the following medications 48 hours prior to surgery: Metformin Hcl (Glucophage), 1,000 MG PO HS -Hold the following medications for 24 hours: Ketoconazole (Topical) (Ketoconazole), 1 APPLN TOP DAILY PRN for RN - Hold the following medications the morning of surgery: Triamterene/Hctz (Dyazide 37.5MG/25MG), 1 CAP PO Q2D Folic Acid (Folic Acid), 1 TAB PO QAM [Novolog], 1 DOSE INJ SC Lisinopril (Zestril), 40 MG PO QAM Furosemide (Lasix), 40 MG PO Q2D - Take the following medications the morning of surgery with a sip of water: Tiotropium [place] (Spiriva Handihaler), 1 CAP INH DAILY PRN for SOB/Wheezing ( if needed) Albuterol Hfa (Ventolin Hfa), 2 PUFFS INH Q6H PRN for PRN (if needed, and bring with you to the hospital) Fluticasone Prop/Salmeterol (Advair Diskus 250/50 60 Dose), 1 PUFF INH BID PRN for Shortness of Breath (if needed) Mometasone Furoate-Formoterol (Dulera 100/5 Mcg), 2 PUFFS INH BID PRN for SOB/ Wheezing (if needed) Carvedilol (Coreg), 50 MG PO BID Rosuvastatin Calcium (Crestor), 40 MG PO QAM Amlodipine (Norvasc), 5 MG PO QAM Duloxetine HCl (Cymbalta), 60 MG PO QAM Tramadol (Ultram), 50 MG PO Q4H PRN for Pain (if needed) Gabapentin (Neurontin), 200 MG PO TID Omeprazole (Prilosec), 40 MG PO QAM - Take the following medications as scheduled the night before surgery: Tiotropium [place] (Spiriva Handihaler), 1 CAP INH DAILY PRN for SOB/Wheezing ( if needed) Fluticasone Prop/Salmeterol (Advair Diskus 250/50 60 Dose), 1 PUFF INH BID PRN for Shortness of Breath (if needed) Mometasone Furoate-Formoterol (Dulera 100/5 Mcg), 2 PUFFS INH BID PRN for SOB/ Wheezing (if needed) Albuterol Hfa (Ventolin Hfa), 2 PUFFS INH Q6H PRN for PRN (if needed) Carvedilol (Coreg), 50 MG PO BID [Novolog], 1 DOSE INJ SC Tramadol (Ultram), 50 MG PO Q4H PRN for Pain (if needed) Insulin Glargine (Lantus), 65 UNITS SQ QPM Gabapentin (Neurontin), 200 MG PO TID Potassium Chloride (Micro-K Ext Rel), 20 MEQ PO QPM - For Insulin Dependent Diabetic patients: Test blood sugar A.M. of surgery. - If BLOOD SUGAR IS GREATER THAN 150, take half of your regular dose of: Insulin Glargine (Lantus), 100 UNITS SQ QAM (TAKE 50 UNITS) - If BLOOD SUGAR IS LESS THAN 150, do not take any: Insulin Glargine ( Lantus), 100 UNITS SQ QAM If you have any questions please call us at [phone] or [phone] or [phone]
--- NOTE | 2017-08-22 11:02 | DIAGNOSTIC IMAGING REPORT ---
CHEST 2 VIEWS ROUTINE CLINICAL HISTORY: Preop chest. COPD. Bronchitis. COMPARISON STUDY: 08/08/2013 FINDINGS: The heart remains mildly enlarged. There is a left subclavian pacer/defibrillator present. There is mild chronic interstitial thickening. There is no acute parenchymal consolidation. There is no failure. There are no pleural effusions.[ IMPRESSION: Stable mild chronic interstitial thickening. No acute findings. Electronically signed by: Srinath Cedeno M.D. 08/22/2017 11:01 AM Dictated Date/Time: 08/22/2017 11:00 AM
[2017-09-03] VITALS (10 sets, daily range): BP systolic 118–151; BP diastolic 69–85; PULSE 69–87; TEMP 36.7–36.9; O2SAT 66–98; Ht 182.9 cm; Wt 127.0 kg
[~2017-09-03] VITALS: Ht 182.9 cm; Wt 127.0 kg
[~2017-09-03 07:05] MED LIST changes: +CEFOXITIN IV 2,000 MG in SYRINGE 11 ML IV SCH; -CEFU1TAB36 PO; +KETO2SHA TOP; +LACTATED RINGER'S 1000ML 1,000 ML IV SCH; -LIDOCAINE HCL 2% 2 ML VIAL (20MG/ML) ONE; -MIDAZOLAM HCL 1 MG/ML 2ML VIAL ONE; +NOVOLOG INJ; -ONDANSETRON INJ 2 MG/ML 2 ML VIAL ONE; -PROPOFOL IV EMULSION 10 MG/ML 20 ML VIAL IV ONE; -SODIUM CHLORIDE 0.9% 500ML 500 ML IV ONE; +TRAM-10 PO
[2017-09-03] MEDS ORDERED: LIDOCAINE HCL 2% 2 ML VIAL (20MG/ML) ONE (07:41)
[2017-09-03] MEDS ORDERED: PROPOFOL IV EMULSION 10 MG/ML 20 ML VIAL IV ONE (07:41)
[2017-09-03] MEDS ORDERED: ONDANSETRON INJ 2 MG/ML 2 ML VIAL ONE (07:41)
[2017-09-03] MEDS ORDERED: ROCURONIUM BROMIDE 10 MG/ML 5 ML VIAL IV ONE (07:41)
[2017-09-03] MEDS ORDERED: MIDAZOLAM HCL 1 MG/ML 2ML VIAL ONE (07:42)
[2017-09-03] MEDS ORDERED: FENTANYL CITRATE INJ 50 MCG/1 ML 2 ML VIAL ONE ×2 (07:42→09:36)
[2017-09-03] MEDS ORDERED: GLYCOPYRROLATE INJ 0.2 MG/ML VIAL ONE (07:42)
[2017-09-03] MEDS ORDERED: NEOSTIGMINE METHYLSULFATE 5 MG/5 ML SYR ONE (07:42)
[2017-09-03] MEDS ORDERED: LABETALOL HCL IV 5 MG/ML 20ML IV PRN (08:45)
[2017-09-03] MEDS ORDERED: ATROPINE SULFATE 0.1 MG/ML 5ML SYR IV PRN (08:45)
[2017-09-03] MEDS ORDERED: MEPERIDINE HCL 25 MG/ML CARP IV PRN (08:45)
[2017-09-03] MEDS ORDERED: HYDROmorphone INJ 1 MG/ML SYR IV PRN (08:45)
[2017-09-03] MEDS ORDERED: ONDANSETRON INJ 2 MG/ML 2 ML VIAL IV PRN ×2 (08:45→11:00)
[2017-09-03] MEDS ORDERED: FENTANYL CITRATE INJ 50 MCG/1 ML 2 ML VIAL IV PRN (08:45)
[2017-09-03] MEDS ORDERED: EpHEDrine SULFATE INJ 50 MG/ML AMP IV PRN (08:45)
--- NOTE | 2017-09-03 08:53 | History & Physical Bridge Note ---
H&P Re-Evaluation Bridge Note: I have examined the patient, reviewed the History & Physical and in the interval since the performance of the History & Physical I have noted the following changes of clinical significance: Cleared by cardiology and pulmonology, off plavix since Aug. No other changes noted
[2017-09-03] MEDS ORDERED: BUPIVACAINE 0.5 % 5 MG/1 ML MPF 30ML VIAL ONE (08:55)
[2017-09-03] MEDS ORDERED: SUCCINYLCHOLINE CHLORIDE 20 MG/ML 10 ML VIAL IV ONE (09:55)
--- NOTE | 2017-09-03 10:50 | [facility] Operative Report ---
Operative Report Operative Date Sep 03, 2017. Pre-Operative Diagnosis Cholelithiasis; Pancreatitis Post-Operative Diagnosis cholelithiasis, pancreatitis Procedure(s) Performed Laparoscopic cholecystectomy Surgeon Dr. Fowler Textile Finisher Surgeon(s) Frank Ovalles PA-C Estimated Blood Loss 3 ml Findings Window of safety obtained, cholangiogram unsuccessful, cystic duct and artery doubly clipped and divided. Specimens A. Gall Bladder and Contents Drains none Anesthesia GETA Complication(s) None Disposition Recovery Room / PACU Indications 52-year-old male with multiple medical problems and history of pancreatitis, noted to have gallstones on endoscopic ultrasound. Plan for laparoscopic cholecystectomy with possible intraoperative cholangiogram. The risks of the procedure were discussed, all questions were answered, and the patient agreed to proceed with surgery as planned. Description of Procedure The patient was properly identified, consented, and taken to the operating room where he was placed in the supine position. General endotracheal anesthesia was induced. SCDs and a safety belt were placed. Preoperative antibiotics were administered. The patient's abdomen was prepped and draped in the standard sterile fashion. A surgical timeout was performed and all parties were in agreement that this was the correct patient and procedure to be performed and we continued as planned. A stab incision was made in the left upper quadrant and the Veress needle was inserted. Saline drop test confirmed entry into the peritoneum. The abdomen was insufflated with carbon dioxide which the patient tolerated without incident. An incision was made superior and to the left of the umbilicus overlying the rectus muscle. The abdomen was then entered using the Optiview technique and a 5 mm trocar. The laparoscope was inserted and no damage from initial trocar or Veress needle placement was noted, no gross abnormalities were noted within the 4 quadrants of the abdomen. An 11 mm port was placed in the subxiphoid position and two 5 mm ports were then placed in the right subcostal position.The patient was placed in reverse Trendelenburg position and rotated towards the left. The dome of the gallbladder was retracted towards the left upper quadrant and the infundibulum was retracted toward the right lower quadrant revealing Calot' s triangle. Peritoneal attachments were taken down with electrocautery and blunt dissection. The cystic duct and artery were circumferentially dissected. A window of safety was obtained showing the cystic duct entering the gallbladder with no aberrant structures noted. The Jaleel cholangiocatheter was then used to attempt an intraoperative cholangiogram, but were unsuccessful on 2 attempts to the small caliber of the cystic duct. The anatomy was well- defined so we decided to forego performing the cholangiogram. The cystic duct and artery were doubly clipped and divided. The gallbladder was then lifted off the gallbladder fossa with electrocautery. The gallbladder was placed in an Endo Catch bag and removed through the umbilical port site. The right upper quadrant was irrigated and hemostasis was found to be good. 5 mm trochars were removed under direct visualization and the abdomen was allowed to collapse. The subxiphoid port site fascia was closed with 0 Vicryl suture. The wound was irrigated, and the skin of all ports was closed with 4-0 Monocryl subcuticular sutures. Dermabond was placed over the wounds. The patient was extubated in the operating room and taken to the PACU where he recovered without apparent incident. All sponge, instrument and needle counts were correct at the conclusion of the procedure. The patient tolerated the procedure well. The physician's orthopedic assistant was essential and entry into the abdomen, exposure and retraction, and closure. I attest to the content of the Intraoperative Record and any orders documented therein. Any exceptions are noted below.
--- NOTE | 2017-09-03 10:52 | [facility] Post Operative Brief Note ---
Immediate Operative Summary Operative Date Sep 03, 2017. Pre-Operative Diagnosis Cholelithiasis; Pancreatitis Post-Operative Diagnosis Same as preop Procedure(s) Performed Laparoscopic Cholecystectomy, with Cholangiogram Surgeon Dr. Fowler Aviation Consultant Surgeon(s) Frank Ovalles PA-C Estimated Blood Loss 3 ml Findings Window of safety obtained, cholangiogram unsuccessful, cystic duct and artery doubly clipped and divided. Specimens A. Gall Bladder and Contents Drains None Anesthesia GETA Complication(s) None Disposition Recovery Room / PACU
[2017-09-03] MEDS ORDERED: GLUCOSE 10 TABS/TUBE PO PRN (11:00)
[2017-09-03] MEDS ORDERED: OXYCODONE/ACETAMINOPHEN 5-325 TAB PO PRN ×2 (11:00)
[2017-09-03] MEDS ORDERED: TIOTROPIUM BROMIDE 5 PUFF/90 MCG INH INH PRN (11:00)
[2017-09-03] MEDS ORDERED: ALBUTEROL HFA 8 GM INHALER INH PRN (11:00)
[2017-09-03] MEDS ORDERED: FLUTICASONE/SALMETEROL 250/50 (ADVAIR) 14 PUFF/1 INHALER INH PRN (11:00)
[2017-09-03] MEDS ORDERED: GLUCAGON FOR INJ 1 MG VIAL SQ PRN (11:00)
[2017-09-03] MEDS ORDERED: GLUCOSE 40% GEL 15 GM TUBE PO PRN (11:00)
[2017-09-03] MEDS ORDERED: TRAMADOL HCL 50 MG TAB PO PRN (11:00)
[2017-09-03] MEDS ORDERED: DEXTROSE 50% 50 ML SYR IV PRN (11:00)
[2017-09-03] MEDS ORDERED: MoRPHine SULFATE 4 MG/ML 1 ML CARP\\VIAL IV PRN (11:00)
[2017-09-03] MEDS ORDERED: IV FLUIDS COMPLETED PRN (12:00)
[2017-09-03] MEDS ORDERED: EpHEDrine SULFATE 50MG/5ML SYR ONE (12:07)
--- NOTE | 2017-09-03 12:40 | Anesthesiology Progress Note ---
Anesthesia Post Op Note Date & Time Sep 03, 2017 at 12:40 Vital Signs Pain Intensity: 0 Vital Signs Past 12 Hours Date Time Temp Pulse Resp B/P (MAP) Pulse Ox O2 Delivery O2 Flow Rate FiO2 09/03/17 11:45 78 20 126/72 93 Nasal Cannula 4 09/03/17 11:40 36.5 77 19 130/68 95 Nasal Cannula 4 09/03/17 11:30 80 23 135/74 92 Nasal Cannula 4 09/03/17 11:20 68 19 141/82 97 Non-Rebreather 15 09/03/17 11:10 87 20 140/88 98 Non-Rebreather 15 09/03/17 11:00 94 24 169/93 95 Non-Rebreather 15 09/03/17 10:57 36.0 94 20 180/94 93 Oxymask 15 09/03/17 07:47 36.8 87 18 151/85 (107) 66 Room Air Notes Mental Status: alert / awake / arousable, participated in evaluation Pt Amnestic to Procedure: Yes Nausea / Vomiting: adequately controlled Pain: adequately controlled Airway Patency, RR, SpO2: stable & adequate BP & HR: stable & adequate Hydration State: stable & adequate Anesthetic Complications: no major complications apparent
[2017-09-03] MEDS: SODIUM CHLORIDE 0.9% 1000ML 1,000 ML IV SCH (12:59)
[2017-09-03] MEDS: GABAPENTIN 100 MG CAP PO SCH ×2 (13:22→21:03)
[2017-09-03] MEDS: INSULIN ASPART 100 UNITS/ML 3 ML PEN SC SCH ×3 (13:22→21:07)
[2017-09-03] MEDS ORDERED: DULERA~ORDER AWAITING ACTION SCH (16:00)
[2017-09-03] MEDS ORDERED: INSULIN GLARGINE SQ SCH (21:00)
[2017-09-03] MEDS ORDERED: POTASSIUM CHLORIDE 10 MEQ TABCR PO SCH (21:00)
[2017-09-03] MEDS ORDERED: METHOTREXATE 2.5 MG TAB PO SCH (21:00)
[2017-09-03] MEDS: CARVEDILOL 25 MG TAB PO SCH (21:04)
[2017-09-04] MEDS: SODIUM CHLORIDE 0.9% 1000ML 1,000 ML IV SCH (01:40)
[2017-09-04 04:07] VITALS: BP 105/70; PULSE 78; TEMP 37.1; O2SAT 92
[2017-09-04] MEDS ORDERED: OXYC-57 PO (07:18)
--- NOTE | 2017-09-04 07:20 | Discharge Instructions ---
Discharge Instructions Date of Service Sep 04, 2017. Admission Reason for Admission: Pancreatitis Discharge Discharge Diagnosis / Problem: laparoscopic cholecystectomy Discharge Goals Goal(s): Decrease discomfort Activity Recommendations Activity Limitations: as noted below Lifting Limitations: no more than 10 pounds Shower/Bathe: no limitations Driving or Machine Use: resume 3 days after discharge . Instructions / Follow-Up Instructions / Follow-Up Dr. Fowler in 2 weeks as planned, call [phone] for any questions Current Hospital Diet Patient's current hospital diet: Diabetes Type 2 Diet Discharge Diet Recommended Diet: Regular Diet Procedures Procedures Performed: Laparoscopic Cholecystectomy, with Cholangiogram Pending Studies Studies pending at discharge: no Medical Emergencies . Who to Call and When: Medical Emergencies: If at any time you feel your situation is an emergency, please call 911 immediately. . Non-Emergent Contact Non-Emergency issues call your: Surgeon Call Non-Emergent contact if: you have a fever, temperature is above 101.5, your pain is not controlled, wound has increased pain, you have any medication questions . "Provider Documentation" section prepared by Frank Ovalles. . VTE Core Measure Inpt VTE Proph given/why not?: SCD's
--- NOTE | 2017-09-04 07:22 | Surgery Progress Note ---
Surgery Progress Note Date of Service Sep 04, 2017. Subjective Post OP Day: 1 + feeling well, + pain controlled, + diet (regular), No nausea Objective Vital Signs: Date Time Temp Pulse Resp B/P (MAP) Pulse Ox O2 Delivery O2 Flow Rate FiO2 09/04/17 04:07 37.1 78 16 105/70 (82) 92 Room Air 09/03/17 23:33 36.8 83 18 118/74 (89) 93 Room Air 09/03/17 23:30 Room Air 09/03/17 21:05 86 118/69 (85) 09/03/17 20:15 Nasal Cannula 4.0 09/03/17 19:51 36.7 80 18 119/76 (90) 97 Nasal Cannula 4.0 09/03/17 15:45 Nasal Cannula 4.0 09/03/17 15:20 36.8 83 22 141/80 (100) 98 Nasal Cannula 4.0 09/03/17 14:07 81 20 125/81 (96) 98 Nasal Cannula 4.0 09/03/17 13:05 73 16 134/83 (100) 96 Nasal Cannula 4.0 09/03/17 12:47 Nasal Cannula 4.0 09/03/17 12:44 91 Nasal Cannula 4.0 09/03/17 12:41 36.9 69 18 131/84 (100) 94 Nasal Cannula 4.0 09/03/17 12:05 36.9 77 18 127/80 (96) 91 Nasal Cannula 4.0 09/03/17 11:45 78 20 126/72 93 Nasal Cannula 4 09/03/17 11:40 36.5 77 19 130/68 95 Nasal Cannula 4 09/03/17 11:30 80 23 135/74 92 Nasal Cannula 4 09/03/17 11:20 68 19 141/82 97 Non-Rebreather 15 09/03/17 11:10 87 20 140/88 98 Non-Rebreather 15 09/03/17 11:00 94 24 169/93 95 Non-Rebreather 15 09/03/17 10:57 36.0 94 20 180/94 93 Oxymask 15 09/03/17 07:47 36.8 87 18 151/85 (107) 66 Room Air Abdomen: non distended, soft Incision(s): clean, dry Laboratory Results: Results Past 24 Hours Test 09/03/17 07:22 09/03/17 11:02 09/03/17 12:09 09/03/17 16:51 Range/Units Bedside Glucose 262 242 268 216 70-99 mg/dl Test 09/03/17 20:32 Range/Units Bedside Glucose 234 70-99 mg/dl Assessment & Plan s/p lap kailyn tolerating diet & po analgesics DM BSG normally in 200's HTN stable ok for d/c
[2017-09-04 07:23] VITALS: BP 99/68; PULSE 71; TEMP 36.6; O2SAT 91
--- NOTE | 2017-09-04 08:15 | DISCHARGE SUMMARY ---
PRIMARY DISCHARGE DIAGNOSIS: History of biliary pancreatitis. SECONDARY DISCHARGE DIAGNOSES: 1. Type 2 diabetes. 2. Hypertension. 3. Coronary artery disease. 4. Chronic obstructive pulmonary disease. 5. Anxiety/depression. 6. Asthma. 7. Sleep apnea. 8. Gastroesophageal reflux disease. PROCEDURE PERFORMED: Laparoscopic cholecystectomy. HOSPITAL COURSE: The patient is a 52-year-old male with a history of biliary pancreatitis, brought in through same day and taken to the operating room for laparoscopic cholecystectomy. The procedure was well tolerated. He was transferred to the surgical floor for overnight observation given his multiple comorbidities. He did well overnight. His blood sugars were covered with sliding scale insulin in addition to his regular scheduled Lantus. On postoperative day #1, he was tolerating diet and oral analgesics. His blood pressure remained stable. His abdomen was soft. Incisions were dry. He was stable for discharge. DISCHARGE INSTRUCTIONS: Discharge home. Follow up with Dr. Fowler in 2 weeks. DISCHARGE MEDICATIONS: Percocet 1-2 tablets every 4 hours as needed, resume other home medications, Ventolin HFA 2 puffs q. 6 hours as needed, Norvasc 5 mg daily, aspirin 81 mg daily, Coreg 50 mg b.i.d., Plavix 75 mg daily, Cymbalta 60 mg daily, Advair Diskus 1 puff b.i.d. as needed, folic acid 1 mg daily, Lasix 40 mg every other day, Neurontin 200 mg t.i.d., Lantus 100 units in the morning and 65 units in the evening, ketaconazole cream as needed, Zestril 40 mg daily, Glucophage 1000 mg at bedtime, methotrexate 7.5 mg, Prilosec 40 mg daily, Micro-K 20 mEq daily, Crestor 40 mg daily, Spiriva 1 puff daily as needed, Ultram 50 mg every 4 hours as needed, Dyazide 37.5/25 mg every other day and sliding scale NovoLog.
[2017-09-04] MEDS ORDERED: LISINOPRIL 40 MG TAB PO SCH (09:00)
[2017-09-04] MEDS ORDERED: ASPIRIN 81 MG ECTAB PO SCH (09:00)
[2017-09-04] MEDS ORDERED: ROSUVASTATIN CALCIUM 20 MG TAB PO SCH (09:00)
[2017-09-04] MEDS ORDERED: INSULIN GLARGINE SQ SCH (09:00)
[2017-09-04] MEDS ORDERED: FUROSEMIDE 40 MG TAB PO SCH (09:00)
[2017-09-04] MEDS: CARVEDILOL 25 MG TAB PO SCH ×2 (09:00→09:12)
[2017-09-04] MEDS ORDERED: AMLODIPINE BESYLATE 5 MG TAB PO SCH (09:00)
[2017-09-04] MEDS ORDERED: PANTOprazole SOD 40 MG TAB PO SCH (09:00)
[2017-09-04] MEDS ORDERED: TRIAMTERENE/HCTZ 37.5/25MG CAP PO SCH (09:00)
[2017-09-04] MEDS ORDERED: DULOXETINE (CYMBALTA) 30 MG CAP PO SCH (09:00)
--- NOTE | 2017-09-04 09:05 | Anesthesiology Progress Note ---
Anesthesia Post Op Note Date & Time Sep 04, 2017 at 09:04 Vital Signs Vital Signs Past 12 Hours Date Time Temp Pulse Resp B/P (MAP) Pulse Ox O2 Delivery O2 Flow Rate FiO2 09/04/17 07:48 Nasal Cannula 09/04/17 07:23 36.6 71 18 99/68 (78) 91 Room Air 09/04/17 04:07 37.1 78 16 105/70 (82) 92 Room Air 09/03/17 23:33 36.8 83 18 118/74 (89) 93 Room Air 09/03/17 23:30 Room Air 09/03/17 21:05 86 118/69 (85) Notes Mental Status: alert / awake / arousable, participated in evaluation Pt Amnestic to Procedure: Yes Nausea / Vomiting: adequately controlled Pain: adequately controlled Airway Patency, RR, SpO2: stable & adequate BP & HR: stable & adequate Hydration State: stable & adequate Anesthetic Complications: no major complications apparent
[2017-09-04] MEDS: GABAPENTIN 100 MG CAP PO SCH (09:11)
[2017-09-04] MEDS: INSULIN ASPART 100 UNITS/ML 3 ML PEN SC SCH (09:17)
[2017-09-04 09:30] VITALS: BP 99/68; PULSE 71; TEMP 36.6; O2SAT 91
== END 2017-09-04 10:30 | disposition home or self-care (01) ==
LOC: C.ACU 07:05 → C.MSW 10:57 → ENRESERV 11:20
PROVIDERS: ADMIT Surgery; ATTEND Surgery
DX: K80.10 Calculus of gallbladder with chronic cholecystitis without obstruction (principal); K85.10 Biliary acute pancreatitis without necrosis or infection; I25.10 Atherosclerotic heart disease of native coronary artery without angina pectoris; I25.5 Ischemic cardiomyopathy; I10 Essential (primary) hypertension; E78.5 Hyperlipidemia, unspecified; E11.42 Type 2 diabetes mellitus with diabetic polyneuropathy; E11.319 Type 2 diabetes mellitus with unspecified diabetic retinopathy without macular edema; G47.33 Obstructive sleep apnea (adult) (pediatric); K76.0 Fatty (change of) liver, not elsewhere classified; J44.9 Chronic obstructive pulmonary disease, unspecified; N52.9 Male erectile dysfunction, unspecified; E66.9 Obesity, unspecified; Z68.39 Body mass index [BMI] 39.0-39.9, adult; F32.9 Major depressive disorder, single episode, unspecified; Z95.810 Presence of automatic (implantable) cardiac defibrillator; J98.4 Other disorders of lung; E55.9 Vitamin D deficiency, unspecified; F17.200 Nicotine dependence, unspecified, uncomplicated; Z79.82 Long term (current) use of aspirin; Z79.4 Long term (current) use of insulin; Z79.899 Other long term (current) drug therapy

== ENCOUNTER → 2017-12-07 | Outpatient (CLI) | payer OTHER ==
[~2017-12-07] MED LIST changes: -CEFOXITIN IV 2,000 MG in SYRINGE 11 ML IV SCH; -LACTATED RINGER'S 1000ML 1,000 ML IV SCH; -MOME100A INH; +OXYC-57 PO
--- NOTE | 2017-12-07 10:34 | DIAGNOSTIC IMAGING REPORT ---
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 COMPARISON STUDY: 08/22/2017 FINDINGS: Lungs are clear. Permanent unipolar cardiac pacemaker/defibrillator. Diaphragms are smooth. IMPRESSION: No acute process. The above report was generated using voice recognition software. It may contain grammatical, syntax or spelling errors. Electronically signed by: Trey Qureshi M.D. 12/07/2017 10:33 AM Dictated Date/Time: 12/07/2017 10:32 AM
== END | disposition home or self-care (01) ==
LOC: C.RAD 10:02
PROVIDERS: ATTEND Dermatology
DX: L40.0 Psoriasis vulgaris (principal)

== ENCOUNTER → 2017-12-11 | Outpatient (CLI) | payer OTHER ==
[2017-12-11 12:11] LABS: HEMATOCRIT 44.1 % (42-52); MEAN CELL VOLUME 89.3 fL (80-100); MEAN CORPUSCULAR HEMOGLOBIN 30.4 pg (25-34); MEAN PLATELET VOLUME 11.1 fL (7.4-10.4); PLATELET COUNT 152 K/uL (130-400); RED CELL DISTRIBUTION WIDTH CV 13.4 % (11.5-14.5); RED CELL DISTRIBUTION WIDTH SD 43.5 fL (36.4-46.3); WHITE BLOOD COUNT 7.05 K/uL (4.8-10.8)
[2017-12-11 12:21] LABS: ALT/SGPT 45 U/L (12-78); AST/SGOT 31 U/L (15-37); BLOOD UREA NITROGEN 9 mg/dl (7-18); CALCIUM 9.2 mg/dl (8.5-10.1); CARBON DIOXIDE 25 mmol/L (21-32); GLUCOSE 151 mg/dl (70-99); SODIUM 136 mmol/L (136-145)
[2017-12-11 12:24] LABS: ALKALINE PHOSPHATASE 68 U/L (45-117); CHOLESTEROL 136 mg/dl (0-200); LDL CHOLESTEROL CALCULATED 64 mg/dl; TOTAL PROTEIN 7.1 gm/dl (6.4-8.2)
[2017-12-11 12:47] LABS: HEMOGLOBIN A1C 8.8 % (4.5-5.6)
[2017-12-11 14:15] LABS: CREATININE RANDOM URINE 36.3 mg/dl
== END | disposition home or self-care (01) ==
LOC: C.LAB1850 10:45
PROVIDERS: ATTEND Internal Medicine
DX: I25.10 Atherosclerotic heart disease of native coronary artery without angina pectoris (principal); K85.90 Acute pancreatitis without necrosis or infection, unspecified; E11.9 Type 2 diabetes mellitus without complications

== ENCOUNTER → 2017-12-21 | Outpatient (CLI) | payer OTHER ==
[2017-12-26 09:17] LABS: QUANTIF MITOGEN-NIL 8.83 IU/ML; QUANTIFERON NEGATIVE (NEGATIVE); QUANTIFERON NIL 0.06 IU/ML
== END | disposition home or self-care (01) ==
LOC: C.LAB1850 14:36
PROVIDERS: ATTEND Internal Medicine
DX: R76.11 Nonspecific reaction to tuberculin skin test without active tuberculosis (principal)

== ENCOUNTER → 2018-05-17 | Outpatient (CLI) | payer OTHER ==
[~2018-05-17] MED LIST changes: -AMLO-110 PO; +AMLO5TAB3 PO; -OXYC-57 PO
[2018-05-17 16:28] LABS: HEMATOCRIT 44.2 % (42-52); HEMOGLOBIN 15.1 g/dL (14.0-18.0); MEAN CELL VOLUME 88.9 fL (80-100); MEAN CORPUSCULAR HEMOGLOBIN 30.4 pg (25-34); MEAN CORPUSCULAR HGB CONC 34.2 g/dl (32-36); MEAN PLATELET VOLUME 12.5 fL (7.4-10.4); PLATELET COUNT 143 K/uL (130-400); RED CELL DISTRIBUTION WIDTH CV 13.4 % (11.5-14.5); RED CELL DISTRIBUTION WIDTH SD 43.7 fL (36.4-46.3)
[2018-05-17 16:30] LABS: HEMOGLOBIN A1C 9.5 % (4.5-5.6)
[2018-05-17 16:39] LABS: ALBUMIN 4.1 gm/dl (3.4-5.0); ALKALINE PHOSPHATASE 75 U/L (45-117); ALT/SGPT 34 U/L (12-78); AST/SGOT 19 U/L (15-37); BLOOD UREA NITROGEN 8 mg/dl (7-18); CALCIUM 8.8 mg/dl (8.5-10.1); CARBON DIOXIDE 29 mmol/L (21-32); CREATININE 0.66 mg/dl (0.60-1.40); GLUCOSE 127 mg/dl (70-99); POTASSIUM 4.3 mmol/L (3.5-5.1); SODIUM 138 mmol/L (136-145)
== END | disposition home or self-care (01) ==
LOC: C.LAB1850 15:08
PROVIDERS: ATTEND Nurse Practitioner Adult Health
DX: Z11.59 Encounter for screening for other viral diseases (principal); L40.9 Psoriasis, unspecified; K21.9 Gastro-esophageal reflux disease without esophagitis; I25.10 Atherosclerotic heart disease of native coronary artery without angina pectoris; Z48.89 Encounter for other specified surgical aftercare; L02.91 Cutaneous abscess, unspecified; R10.9 Unspecified abdominal pain